=== PATIENT | male | born 1965 | race Two or more races ===

== ENCOUNTER 2018-05-10 23:43 | Inpatient (IN) | payer MEDICAID, OTHER ==
[~2018-05-10] VITALS: Ht 193 cm; Wt 73.0 kg
[2018-05-11 01:31] LABS: Hematocrit 39.4 % (41.0-53.0); Hemoglobin 12.9 g/dL (13.5-17.5); Mean Corpuscular Hemoglobin 28.4 pg (28.0-32.0); Mean Corpuscular Hgb Conc. 32.6 g/dL (32.0-36.0); Mean Corpuscular Volume 87.2 fL (80.0-100.0); Platelet Count (auto) 427 10^3/uL (140-450); Red Blood Cells 4.52 10^6/uL (4.5-5.90); Red Cell Distribution Width 14.5 % (11.8-14.3); White Blood Cell 22.1 10^3/uL (4.4-10.8)
[2018-05-11 01:45] LABS: Albumin 1.8 g/dL (3.4-5.0); BUN/Creatinine Ratio 27.9; Calcium 7.7 mg/dL (8.5-10.1)
[2018-05-11 01:48] LABS: Bilirubin, Total 1.2 mg/dL (0.2-1.0); Total Protein 6.1 g/dL (6.4-8.2)
[2018-05-11 01:56] LABS: Basophils % (manual) 0 (0.0-2.0); Blast Cells 0; Eosinophils % (manual) 0 (0-7); Metamyelocytes % 0; Myelocytes % 0; Promyelocytes % 0; Reactive Lymphocytes 0
[2018-05-11 02:59] LABS: Band Neutrophils % (manual) 11; Lymphocytes % (manual) 4 (10.0-50.0); Monocytes % (manual) 6 (0-12)
[2018-05-11] MEDS ORDERED: IPRATROPIUM BROM 0.5 MG/2.5ML INH SOL HHN ONE (03:00)
[2018-05-11] MEDS ORDERED: ALBUTEROL SULF 2.5 MG/0.5ML(0.5%) NEB SOLN HHN ONE (03:00)
[2018-05-11] MEDS ORDERED: methylPREDNISolone SOD SUCC 125 MG/2 ML VL IV ONE (03:00)
[2018-05-11 03:20] LABS: Urine Bacteria FEW /hpf (None Seen); Urine Blood Negative /uL (Negative); Urine Mucus FEW (None Seen); Urine WBC 3 /hpf (0 - 3)
[2018-05-11 03:27] LABS: Magnesium 2.3 mg/dL (1.6-2.6)
[2018-05-11 03:38] LABS: Alcohol, Urine < 3.0 mg/dL (0-5); Amphetamine Screen, Urine NEGATIVE (NEGATIVE); Barbiturate Scree,Urine NEGATIVE (NEGATIVE); Benzodiazephine Screen, Urine NEGATIVE (NEGATIVE); Cannabinoid Screen, Urine NEGATIVE (NEGATIVE); Cocaine Screen, Urine NEGATIVE (NEGATIVE); Opiate Scree,Urine POSITIVE (NEGATIVE); Phencyclidine Screen, Urine NEGATIVE (NEGATIVE)
[2018-05-11] MEDS ORDERED: PIPERACILLIN-TAZOB 3.375GM 100 ML IV ONE (03:45)
[2018-05-11] MEDS ORDERED: HYDROmorphone HCL 2 MG TAB PO ONE (03:45)
[2018-05-11] MEDS ORDERED: HYDROmorphone HCL 2 MG/ML VL IV ONE (03:45)
[2018-05-11] MEDS ORDERED: ONDANSETRON HCL 4 MG/2 ML VIAL IV ONE ×2 (03:45)
[2018-05-11] MEDS ORDERED: LORazepam 2MG/ML-1ML VIAL IV ONE (03:45)
[2018-05-11] MEDS ORDERED: CALCIUM GLUC 4.65meq/50ml D5AE 50 ML IV ONE (06:30)
[2018-05-11] MEDS ORDERED: ONDANSETRON HCL 4 MG/2 ML VIAL IV PRN (06:30)
[2018-05-11] MEDS ORDERED: MORPHINE SULFATE 4 MG/ML SYR/VIAL IV PRN (06:30)
[2018-05-11] MEDS ORDERED: ACETAMINOPHEN 325 MG TAB PO PRN (06:30)
[2018-05-11] MEDS ORDERED: TEMAZEPAM 15 MG CAP PO PRN (06:30)
[2018-05-11] MEDS ORDERED: NITROGLYCERIN 0.4 MG SL TAB SL PRN (06:30)
[2018-05-11 08:16] VITALS: BP 107/58
[2018-05-11] MEDS: FAMOTIDINE 20 MG TAB PO SCH ×2 (09:42→21:47)
[2018-05-11] MEDS: ALBUTEROL SULF 2.5 MG/0.5ML(0.5%) NEB SOLN NEB PRN (09:52)
[2018-05-11] MEDS ORDERED: ENOXAPARIN SOD 40 MG/0.4 ML SYRINGE SC SCH (10:00)
[2018-05-11] MEDS ORDERED: LEVOFLOXACIN 750MG 150 ML IV SCH (10:00)
[2018-05-11] MEDS ORDERED: LIDOCAINE 1% (LOCAL ANESTH.) PF 5ml SDV ONE ×2 (11:25→11:32)
[2018-05-11] MEDS ORDERED: MIDAZOLAM HCL 5 MG/ML-1ML VIAL ONE (11:42)
[2018-05-11] MEDS ORDERED: ONDANSETRON HCL 4 MG/2 ML VIAL ONE (11:58)
[2018-05-11] MEDS ORDERED: MORPHINE SULFATE 4 MG/ML SYR/VIAL ONE (11:58)
[2018-05-11] MEDS ORDERED: MIDAZOLAM HCL 5 MG/ML-1ML VIAL IV ONE (12:30)
[2018-05-11 12:39] VITALS: BP 107/58
[2018-05-11] MEDS ORDERED: VANCOMYCIN PER PHARMACY 0 MG IV SCH (12:45)
[2018-05-11] MEDS ORDERED: GASTROGRAFIN 30 ML SOL ONE (12:56)
[2018-05-11 13:21] VITALS: BP 107/69
[2018-05-11 13:21] LABS: INR 1.18 (0.9-1.15); Prothrombin Time 12.9 sec (9.27-12.13)
[2018-05-11 13:58] LABS: % Iron Saturation 12.6 % (20-55)
[2018-05-11] MEDS: MEROPENEM 1GM IVPB 100 ML IV SCH ×2 (14:48→21:47)
[2018-05-11 15:46] VITALS: BP 120/70
[2018-05-11] MEDS: MORPHINE SULFATE 4 MG/ML SYR/VIAL IV PRN ×2 (16:02→20:34)
[2018-05-11] MEDS: ONDANSETRON HCL 4 MG/2 ML VIAL IV PRN (16:02)
[2018-05-11] MEDS: VANCOMYCIN 1,250 MG in D5W 5% 250 ML IV SCH (17:32)
[2018-05-11] MEDS ORDERED: IOHEXOL 300 MG/ML 100ML BOTTLE IJ ONE (17:42)
[2018-05-11 20:38] VITALS: BP 105/63
[2018-05-12] MEDS: MORPHINE SULFATE 4 MG/ML SYR/VIAL IV PRN ×3 (01:08→05:34)
[2018-05-12 01:20] VITALS: BP 114/68
[2018-05-12] MEDS: VANCOMYCIN 1,250 MG in D5W 5% 250 ML IV SCH ×2 (04:52→16:34)
[2018-05-12 04:59] LABS: Basophils # (auto) 0 uL; Basophils % (auto) 0.1 % (0.0-2.0); Eosinophils # (auto) 0 uL; Eosinophils % (auto) 0.1 % (0.0-7.0); Hematocrit 37.2 % (41.0-53.0); Hemoglobin 12.5 g/dL (13.5-17.5); Lymphocytes # (auto) 0.9 uL; Lymphocytes % (auto) 5.2 % (10.0-50.0); Mean Corpuscular Hemoglobin 29.3 pg (28.0-32.0); Mean Corpuscular Hgb Conc. 33.6 g/dL (32.0-36.0); Mean Corpuscular Volume 87.2 fL (80.0-100.0); Monocytes # (auto) 1.8 uL; Monocytes % (auto) 10.8 % (0.0-12.0); Neutrophils % (auto) 83.8 % (37.0-80.0); Platelet Count (auto) 433 10^3/uL (140-450); Red Blood Cells 4.27 10^6/uL (4.5-5.90); Red Cell Distribution Width 14.5 % (11.8-14.3); White Blood Cell 16.6 10^3/uL (4.4-10.8)
[2018-05-12 05:12] VITALS: BP 116/63
[2018-05-12 05:19] LABS: Albumin 1.5 g/dL (3.4-5.0); Calcium 7.7 mg/dL (8.5-10.1); Potassium 4.3 mmol/L (3.5-5.1)
[2018-05-12 05:23] LABS: BUN/Creatinine Ratio 41.7; Bilirubin, Total 0.9 mg/dL (0.2-1.0); Total Protein 5.3 g/dL (6.4-8.2)
[2018-05-12] MEDS: MEROPENEM 1GM IVPB 100 ML IV SCH ×3 (07:56→22:03)
[2018-05-12 08:00] VITALS: BP 115/66
[2018-05-12] MEDS: FAMOTIDINE 20 MG TAB PO SCH ×2 (09:51→22:03)
[2018-05-12] MEDS: HYDROcodone-ACET 5/325MG TAB PO PRN ×2 (09:51→19:48)
[2018-05-12] MEDS: ALBUTEROL SULF 2.5 MG/0.5ML(0.5%) NEB SOLN NEB PRN (10:21)
[2018-05-12 11:48] VITALS: BP 109/65
[2018-05-12] MEDS ORDERED: IBUP600T27 PO (13:01)
[2018-05-12 15:50] VITALS: BP 117/70
[2018-05-12 19:47] VITALS: BP 119/70
[2018-05-13] VITALS: BP 115/62
[2018-05-13 04:00] VITALS: BP 120/73
[2018-05-13] MEDS: VANCOMYCIN 1,250 MG in D5W 5% 250 ML IV SCH ×2 (04:49→17:10)
[2018-05-13] MEDS: HYDROcodone-ACET 5/325MG TAB PO PRN (04:56)
[2018-05-13 05:43] LABS: Basophils # (auto) 0 uL; Eosinophils # (auto) 0 uL; Eosinophils % (auto) 0.1 % (0.0-7.0); Lymphocytes # (auto) 0.5 uL; Neutrophils # (auto) 14.4 uL; White Blood Cell 16.4 10^3/uL (4.4-10.8)
[2018-05-13 05:45] LABS: Basophils % (auto) 0.1 % (0.0-2.0); Hematocrit 36.5 % (41.0-53.0); Hemoglobin 12.4 g/dL (13.5-17.5); Lymphocytes % (auto) 3.1 % (10.0-50.0); Mean Corpuscular Hemoglobin 29.4 pg (28.0-32.0); Mean Corpuscular Hgb Conc. 33.9 g/dL (32.0-36.0); Mean Corpuscular Volume 86.7 fL (80.0-100.0); Monocytes # (auto) 1.5 uL; Monocytes % (auto) 9.1 % (0.0-12.0); Neutrophils % (auto) 87.6 % (37.0-80.0); Nucleated Red Blood Cells % 0.1 %; Platelet Count (auto) 441 10^3/uL (140-450); Red Blood Cells 4.21 10^6/uL (4.5-5.90); Red Cell Distribution Width 14.4 % (11.8-14.3)
[2018-05-13 06:04] LABS: Albumin 1.5 g/dL (3.4-5.0); BUN/Creatinine Ratio 37.3; Calcium 7.3 mg/dL (8.5-10.1); Potassium 4.1 mmol/L (3.5-5.1)
[2018-05-13 06:07] LABS: Bilirubin, Total 0.8 mg/dL (0.2-1.0); Total Protein 5.3 g/dL (6.4-8.2)
[2018-05-13] MEDS: MEROPENEM 1GM IVPB 100 ML IV SCH ×3 (07:00→21:46)
[2018-05-13 07:50] VITALS: BP 114/72
[2018-05-13] MEDS: ONDANSETRON HCL 4 MG/2 ML VIAL IV PRN ×2 (09:39→21:47)
[2018-05-13] MEDS: MORPHINE SULFATE 4 MG/ML SYR/VIAL IV PRN ×2 (09:40→21:46)
[2018-05-13] MEDS: FAMOTIDINE 20 MG TAB PO SCH ×2 (09:49→21:46)
[2018-05-13] MEDS ORDERED: LACT10SO3 PO (11:34)
[2018-05-13] MEDS ORDERED: GABA300C10 PO (11:34)
[2018-05-13 11:37] VITALS: BP 113/66
[2018-05-13 13:37] LABS: Hepatitis B Surface Antibody Negative; Hepatitis B Surface Antigen Negative (Negative)
[2018-05-13 13:38] LABS: Hepatitis A Total Antibody Positive; Hepatitis B Core Total AB Negative; Hepatitis C Antibody Negative (Negative)
[2018-05-13 15:56] VITALS: BP 113/66
[2018-05-13 19:55] VITALS: BP 116/68
[2018-05-14] VITALS (7 sets, daily range): BP systolic 103–115; BP diastolic 60–66
[2018-05-14] MEDS: VANCOMYCIN 1,250 MG in D5W 5% 250 ML IV SCH ×3 (01:36→16:44)
[2018-05-14] MEDS: HYDROcodone-ACET 5/325MG TAB PO PRN (01:40)
[2018-05-14] MEDS: MEROPENEM 1GM IVPB 100 ML IV SCH ×3 (05:47→21:45)
[2018-05-14 06:15] LABS: Basophils # (auto) 0 uL; Basophils % (auto) 0.1 % (0.0-2.0); Eosinophils # (auto) 0 uL; Eosinophils % (auto) 0.2 % (0.0-7.0); Hematocrit 35.2 % (41.0-53.0); Hemoglobin 11.6 g/dL (13.5-17.5); Lymphocytes # (auto) 0.7 uL; Lymphocytes % (auto) 4.9 % (10.0-50.0); Mean Corpuscular Hemoglobin 28.5 pg (28.0-32.0); Mean Corpuscular Volume 86.5 fL (80.0-100.0); Monocytes # (auto) 1.8 uL; Monocytes % (auto) 13.2 % (0.0-12.0); Neutrophils # (auto) 11.5 uL; Neutrophils % (auto) 81.6 % (37.0-80.0); Platelet Count (auto) 399 10^3/uL (140-450); Red Blood Cells 4.07 10^6/uL (4.5-5.90)
[2018-05-14 06:38] LABS: Albumin 1.5 g/dL (3.4-5.0); BUN/Creatinine Ratio 30.9; Bilirubin, Total 0.6 mg/dL (0.2-1.0); Calcium 7.5 mg/dL (8.5-10.1)
[2018-05-14] MEDS ORDERED: IOHEXOL 300 MG/ML 100ML BOTTLE IJ ONE (09:23)
[2018-05-14] MEDS: FAMOTIDINE 20 MG TAB PO SCH ×2 (10:21→21:45)
[2018-05-14] MEDS: MORPHINE SULFATE 4 MG/ML SYR/VIAL IV PRN ×2 (11:10→16:22)
[2018-05-14] MEDS: ONDANSETRON HCL 4 MG/2 ML VIAL IV PRN ×2 (11:10→16:22)
[2018-05-15] VITALS: BP 108/48
[2018-05-15] MEDS: VANCOMYCIN 1,250 MG in D5W 5% 250 ML IV SCH ×2 (00:40→09:03)
[2018-05-15] MEDS: MEROPENEM 1GM IVPB 100 ML IV SCH ×2 (05:45→14:05)
[2018-05-15 06:11] LABS: Basophils # (auto) 0 uL; Basophils % (auto) 0.3 % (0.0-2.0); Eosinophils # (auto) 0.1 uL; Hematocrit 37.1 % (41.0-53.0); Hemoglobin 12.5 g/dL (13.5-17.5); Lymphocytes # (auto) 0.7 uL; Lymphocytes % (auto) 5.2 % (10.0-50.0); Mean Corpuscular Hemoglobin 29.1 pg (28.0-32.0); Mean Corpuscular Hgb Conc. 33.7 g/dL (32.0-36.0); Mean Corpuscular Volume 86.5 fL (80.0-100.0); Monocytes # (auto) 1.6 uL; Monocytes % (auto) 11.2 % (0.0-12.0); Neutrophils # (auto) 11.9 uL; Neutrophils % (auto) 82.3 % (37.0-80.0); Platelet Count (auto) 436 10^3/uL (140-450); Red Blood Cells 4.29 10^6/uL (4.5-5.90); White Blood Cell 14.4 10^3/uL (4.4-10.8)
[2018-05-15 06:27] LABS: Albumin 1.7 g/dL (3.4-5.0); Calcium 7.6 mg/dL (8.5-10.1)
[2018-05-15 06:29] LABS: BUN/Creatinine Ratio 30.2
[2018-05-15 06:31] LABS: Bilirubin, Total 0.6 mg/dL (0.2-1.0); Total Protein 5.4 g/dL (6.4-8.2)
[2018-05-15 07:30] VITALS: BP 107/57
[2018-05-15] MEDS: FAMOTIDINE 20 MG TAB PO SCH ×2 (09:02→21:33)
[2018-05-15] MEDS: HYDROcodone-ACET 5/325MG TAB PO PRN ×2 (09:18→21:33)
[2018-05-15 12:30] VITALS: BP 130/60
[2018-05-15 15:47] VITALS: BP 114/63
[2018-05-15] MEDS: PENICILLIN G POTASSIUM 3,000,000 UNITS in D5W 5% 50 ML IV SCH ×2 (17:32→21:33)
[2018-05-15 20:00] VITALS: BP 122/67
[2018-05-16] VITALS: BP 115/68
[2018-05-16] MEDS: PENICILLIN G POTASSIUM 3,000,000 UNITS in D5W 5% 50 ML IV SCH ×6 (01:42→21:50)
[2018-05-16 04:00] VITALS: BP 134/65
[2018-05-16] MEDS: HYDROcodone-ACET 5/325MG TAB PO PRN ×4 (04:03→21:09)
[2018-05-16 04:49] LABS: Basophils # (auto) 0.1 uL; Basophils % (auto) 0.4 % (0.0-2.0); Eosinophils # (auto) 0.2 uL; Hematocrit 35.8 % (41.0-53.0); Hemoglobin 12.2 g/dL (13.5-17.5); Lymphocytes # (auto) 0.8 uL; Lymphocytes % (auto) 6.8 % (10.0-50.0); Mean Corpuscular Hemoglobin 29.3 pg (28.0-32.0); Mean Corpuscular Volume 86.3 fL (80.0-100.0); Monocytes # (auto) 1.6 uL; Monocytes % (auto) 13.4 % (0.0-12.0); Neutrophils # (auto) 9.5 uL; Neutrophils % (auto) 77.4 % (37.0-80.0); Platelet Count (auto) 412 10^3/uL (140-450); Red Blood Cells 4.14 10^6/uL (4.5-5.90); Red Cell Distribution Width 13.9 % (11.8-14.3); White Blood Cell 12.2 10^3/uL (4.4-10.8)
[2018-05-16 05:07] LABS: Albumin 1.7 g/dL (3.4-5.0); BUN/Creatinine Ratio 33.3; Calcium 7.7 mg/dL (8.5-10.1); Potassium 4.1 mmol/L (3.5-5.1)
[2018-05-16 05:10] LABS: Bilirubin, Total 0.7 mg/dL (0.2-1.0); Total Protein 5.3 g/dL (6.4-8.2)
[2018-05-16 08:30] VITALS: BP 125/69
[2018-05-16] MEDS: FAMOTIDINE 20 MG TAB PO SCH ×2 (09:18→21:50)
[2018-05-16 11:50] VITALS: BP 111/57
[2018-05-16 15:51] VITALS: BP 119/69
[2018-05-16] MEDS ORDERED: MORPHINE SULFATE 4 MG/ML SYR/VIAL IV PRN (16:30)
[2018-05-16] MEDS: Pro-Stat SF 30ml Vanilla PO SCH (18:07)
[2018-05-16] MEDS: Ensure Enlive Chocolate 8oz Bottle PO SCH (18:07)
[2018-05-16 22:00] VITALS: BP 124/70
[2018-05-17] MEDS: PENICILLIN G POTASSIUM 3,000,000 UNITS in D5W 5% 50 ML IV SCH ×6 (02:10→22:15)
[2018-05-17] MEDS: HYDROcodone-ACET 5/325MG TAB PO PRN ×3 (02:11→15:45)
[2018-05-17 05:00] VITALS: BP 121/69
[2018-05-17 05:12] LABS: Basophils # (auto) 0.1 uL; Basophils % (auto) 0.5 % (0.0-2.0); Eosinophils # (auto) 0.3 uL; Eosinophils % (auto) 2.5 % (0.0-7.0); Hematocrit 36.6 % (41.0-53.0); Hemoglobin 12.3 g/dL (13.5-17.5); Lymphocytes # (auto) 0.9 uL; Lymphocytes % (auto) 7.9 % (10.0-50.0); Mean Corpuscular Hgb Conc. 33.8 g/dL (32.0-36.0); Mean Corpuscular Volume 85.9 fL (80.0-100.0); Monocytes # (auto) 1.3 uL; Monocytes % (auto) 11.4 % (0.0-12.0); Neutrophils # (auto) 8.7 uL; Neutrophils % (auto) 77.7 % (37.0-80.0); Nucleated Red Blood Cells % 0.1 %; Platelet Count (auto) 431 10^3/uL (140-450); Red Blood Cells 4.26 10^6/uL (4.5-5.90); Red Cell Distribution Width 14.1 % (11.8-14.3); White Blood Cell 11.2 10^3/uL (4.4-10.8)
[2018-05-17 05:31] LABS: Albumin 1.8 g/dL (3.4-5.0); Calcium 7.8 mg/dL (8.5-10.1); Potassium 3.9 mmol/L (3.5-5.1)
[2018-05-17 05:36] LABS: BUN/Creatinine Ratio 25.5; Bilirubin, Total 0.6 mg/dL (0.2-1.0); Total Protein 5.7 g/dL (6.4-8.2)
[2018-05-17 07:52] VITALS: BP 121/69
[2018-05-17 08:18] VITALS: BP_SYST 115; BP_SYST 122; BP_DIAS 72; BP_DIAS 80
[2018-05-17] MEDS: Pro-Stat SF 30ml Vanilla PO SCH ×2 (08:26→17:36)
[2018-05-17] MEDS: Ensure Enlive Chocolate 8oz Bottle PO SCH ×2 (08:26→17:36)
[2018-05-17] MEDS: FAMOTIDINE 20 MG TAB PO SCH ×2 (10:26→22:16)
[2018-05-17 12:07] VITALS: BP 112/73
[2018-05-17] MEDS: SODIUM FERR GLUC 62.5MG/5ML 125 MG in SODIUM CHL 0.9% 100 ML IV SCH (13:25)
[2018-05-17 16:29] VITALS: BP 113/70
[2018-05-17] MEDS: MORPHINE SULFATE 4 MG/ML SYR/VIAL IV PRN (20:20)
[2018-05-17 21:47] VITALS: BP 120/65
[2018-05-18] MEDS: HYDROcodone-ACET 5/325MG TAB PO PRN ×4 (00:18→19:45)
[2018-05-18] MEDS: PENICILLIN G POTASSIUM 3,000,000 UNITS in D5W 5% 50 ML IV SCH ×6 (02:06→21:58)
[2018-05-18 05:04] VITALS: BP 116/68
[2018-05-18 05:36] LABS: Basophils # (auto) 0.1 uL; Eosinophils # (auto) 0.3 uL; Eosinophils % (auto) 3.3 % (0.0-7.0); Hematocrit 33.3 % (41.0-53.0); Hemoglobin 11.4 g/dL (13.5-17.5); Lymphocytes # (auto) 0.9 uL; Lymphocytes % (auto) 8.5 % (10.0-50.0); Mean Corpuscular Hemoglobin 29.6 pg (28.0-32.0); Mean Corpuscular Hgb Conc. 34.4 g/dL (32.0-36.0); Mean Corpuscular Volume 85.9 fL (80.0-100.0); Monocytes # (auto) 1.4 uL; Monocytes % (auto) 13.4 % (0.0-12.0); Neutrophils # (auto) 7.4 uL; Neutrophils % (auto) 73.8 % (37.0-80.0); Platelet Count (auto) 400 10^3/uL (140-450); Red Blood Cells 3.87 10^6/uL (4.5-5.90); White Blood Cell 10.1 10^3/uL (4.4-10.8)
[2018-05-18 05:55] LABS: Albumin 1.8 g/dL (3.4-5.0); Calcium 7.7 mg/dL (8.5-10.1); Potassium 3.9 mmol/L (3.5-5.1)
[2018-05-18 05:59] LABS: Bilirubin, Total 0.6 mg/dL (0.2-1.0); Total Protein 5.4 g/dL (6.4-8.2)
[2018-05-18 08:03] VITALS: BP 118/70
[2018-05-18] MEDS: FAMOTIDINE 20 MG TAB PO SCH ×2 (10:15→21:58)
[2018-05-18] MEDS: Ensure Enlive Chocolate 8oz Bottle PO SCH ×2 (10:20→18:05)
[2018-05-18] MEDS: Pro-Stat SF 30ml Vanilla PO SCH ×2 (10:21→18:06)
[2018-05-18 12:17] VITALS: BP 113/60
[2018-05-18] MEDS: SODIUM FERR GLUC 62.5MG/5ML 125 MG in SODIUM CHL 0.9% 100 ML IV SCH (12:27)
[2018-05-18 16:53] VITALS: BP 123/71
[2018-05-18] MEDS ORDERED: TEMAZEPAM 15 MG CAP PO PRN (18:00)
[2018-05-18] MEDS: FERROUS SULFATE 325 MG TAB PO SCH (18:05)
[2018-05-18 22:00] VITALS: BP 119/68
[2018-05-19] MEDS: MORPHINE SULFATE 4 MG/ML SYR/VIAL IV PRN ×3 (01:25→20:01)
[2018-05-19] MEDS: PENICILLIN G POTASSIUM 3,000,000 UNITS in D5W 5% 50 ML IV SCH ×6 (01:51→21:52)
[2018-05-19] MEDS: HYDROcodone-ACET 5/325MG TAB PO PRN ×3 (04:01→23:33)
[2018-05-19 05:00] VITALS: BP 121/75
[2018-05-19] MEDS: FERROUS SULFATE 325 MG TAB PO SCH ×2 (08:05→17:52)
[2018-05-19] MEDS: Ensure Enlive Chocolate 8oz Bottle PO SCH ×2 (08:06→19:31)
[2018-05-19] MEDS: Pro-Stat SF 30ml Vanilla PO SCH ×2 (08:07→19:31)
[2018-05-19 09:00] VITALS: BP 118/64
[2018-05-19] MEDS: FAMOTIDINE 20 MG TAB PO SCH ×2 (10:04→21:52)
[2018-05-19 12:48] VITALS: BP 115/64
[2018-05-19 17:00] VITALS: BP 123/71
[2018-05-19 22:24] VITALS: BP 119/64
[2018-05-20] MEDS: PENICILLIN G POTASSIUM 3,000,000 UNITS in D5W 5% 50 ML IV SCH ×6 (02:04→21:24)
[2018-05-20] MEDS: HYDROcodone-ACET 5/325MG TAB PO PRN ×2 (05:34→22:45)
[2018-05-20 05:38] VITALS: BP 127/74
[2018-05-20] MEDS: FERROUS SULFATE 325 MG TAB PO SCH ×2 (07:59→18:11)
[2018-05-20 08:00] VITALS: BP 127/74
[2018-05-20] MEDS: Pro-Stat SF 30ml Vanilla PO SCH ×2 (08:03→18:12)
[2018-05-20] MEDS: Ensure Enlive Chocolate 8oz Bottle PO SCH ×2 (08:03→18:12)
[2018-05-20 08:48] VITALS: BP 118/66
[2018-05-20] MEDS: FAMOTIDINE 20 MG TAB PO SCH ×2 (10:09→21:24)
[2018-05-20 13:00] VITALS: BP 117/76
[2018-05-20] MEDS ORDERED: CLINDAMYCIN 900MG IV 50 ML IV SCH (14:00)
[2018-05-20] MEDS: CLINDAMYCIN 900MG IV 50 ML IV SCH ×2 (15:11→23:28)
[2018-05-20 17:03] VITALS: BP 119/76
[2018-05-20] MEDS: MORPHINE SULFATE 4 MG/ML SYR/VIAL IV PRN (20:19)
[2018-05-20 21:48] VITALS: BP 119/70
[2018-05-21] VITALS (26 sets, daily range): BP systolic 96–119; BP diastolic 58–81
[2018-05-21] MEDS: PENICILLIN G POTASSIUM 3,000,000 UNITS in D5W 5% 50 ML IV SCH ×6 (01:29→22:23)
[2018-05-21] MEDS: HYDROcodone-ACET 5/325MG TAB PO PRN ×2 (05:28→12:53)
[2018-05-21 05:34] LABS: Basophils # (auto) 0.1 uL; Eosinophils # (auto) 0.2 uL; Eosinophils % (auto) 2.1 % (0.0-7.0); Hematocrit 34.9 % (41.0-53.0); Hemoglobin 11.8 g/dL (13.5-17.5); Lymphocytes # (auto) 1.3 uL; Lymphocytes % (auto) 11.1 % (10.0-50.0); Mean Corpuscular Hemoglobin 28.9 pg (28.0-32.0); Mean Corpuscular Hgb Conc. 33.9 g/dL (32.0-36.0); Mean Corpuscular Volume 85.4 fL (80.0-100.0); Monocytes # (auto) 1.4 uL; Monocytes % (auto) 12.2 % (0.0-12.0); Neutrophils # (auto) 8.4 uL; Neutrophils % (auto) 73.6 % (37.0-80.0); Platelet Count (auto) 405 10^3/uL (140-450); Red Blood Cells 4.09 10^6/uL (4.5-5.90); White Blood Cell 11.4 10^3/uL (4.4-10.8)
[2018-05-21 05:52] LABS: INR 1.05 (0.9-1.15); Partial Thromboplastin Time 30.7 sec (23.78-33.04); Prothrombin Time 11.2 sec (9.27-12.13)
[2018-05-21 06:15] LABS: Potassium 4.2 mmol/L (3.5-5.1)
[2018-05-21 06:21] LABS: Urine WBC None Seen /hpf (0 - 3)
[2018-05-21 06:25] LABS: BUN/Creatinine Ratio 35.6; Bilirubin, Total 0.3 mg/dL (0.2-1.0); Calcium 8.1 mg/dL (8.5-10.1); Total Protein 6.1 g/dL (6.4-8.2)
[2018-05-21 06:57] LABS: Urine Bacteria NONE SEEN /hpf (None Seen); Urine Blood Negative /uL (Negative); Urine Specific Gravity 1.015 (1.001-1.035)
[2018-05-21] MEDS: CLINDAMYCIN 900MG IV 50 ML IV SCH ×3 (07:00→23:04)
[2018-05-21] MEDS: Ensure Enlive Chocolate 8oz Bottle PO SCH ×2 (08:00→18:00)
[2018-05-21] MEDS: FERROUS SULFATE 325 MG TAB PO SCH ×2 (08:00→18:00)
[2018-05-21] MEDS: Pro-Stat SF 30ml Vanilla PO SCH ×2 (08:00→18:00)
[2018-05-21] MEDS: HYDROmorphone HCL 2 MG/ML VL IV PRN ×5 (08:11→19:48)
[2018-05-21] MEDS: FAMOTIDINE 20 MG TAB PO SCH ×2 (10:00→22:00)
[2018-05-21] MEDS ORDERED: fentaNYL CITRATE 100 MCG/2 ML VL ONE (14:51)
[2018-05-21] MEDS ORDERED: MIDAZOLAM HCL 1MG/1ML-2 ML VIAL ONE (14:51)
[2018-05-21] MEDS ORDERED: SUCCINYLCHOLINE CHLORIDE 20 MG/ML 10ML VIAL IV ONE (14:51)
[2018-05-21] MEDS ORDERED: MEPERIDINE HCL (50 MG/ML) 1 ML VIAL ONE ×2 (14:51→16:34)
[2018-05-21] MEDS ORDERED: PHENYLEPHRINE HCL 10 MG/ML VL IV ONE (14:55)
[2018-05-21] MEDS ORDERED: ETOMIDATE (2MG/ML) 20ML VIAL IV ONE (14:55)
[2018-05-21] MEDS ORDERED: DEXAMETHASONE SOD PHOS 10MG/1ML VIAL INJ ONE (15:03)
[2018-05-21] MEDS ORDERED: PROPOFOL 10 MG/ML 20 ML IV ONE (15:03)
[2018-05-21] MEDS ORDERED: KETOROLAC TROMETH 30 MG/ML 1ML VIAL ONE (16:10)
[2018-05-21] MEDS ORDERED: HYDROmorphone HCL 2 MG/ML VL IV PRN (17:00)
[2018-05-21] MEDS ORDERED: ONDANSETRON HCL 4 MG/2 ML VIAL IV ONE (17:00)
[2018-05-21] MEDS ORDERED: KETOROLAC TROMETH 30 MG/ML 1ML VIAL IV ONE (17:00)
[2018-05-21] MEDS ORDERED: ePHEDrine SULFATE 50 MG/ML AMP IV PRN (17:00)
[2018-05-21] MEDS ORDERED: MORPHINE SULFATE 4 MG/ML SYR/VIAL IV PRN (17:00)
[2018-05-21] MEDS ORDERED: LABETALOL HCL 5 MG/ML 4ML SYRINGE IV PRN (17:00)
[2018-05-21] MEDS ORDERED: MORPHINE SULFATE 4 MG/ML SYR/VIAL IV ONE (18:00)
[2018-05-21] MEDS: KETOROLAC TROMETH 30 MG/ML 1ML VIAL IV PRN (22:18)
[2018-05-21] MEDS: D5W/SOD CHL 0.45%/KCL 20MEQ 1,000 ML IV SCH (22:22)
[2018-05-22] VITALS (71 sets, daily range): BP systolic 93–127; BP diastolic 51–79
[2018-05-22] MEDS: HYDROmorphone HCL 2 MG/ML VL IV PRN ×3 (01:22→19:53)
[2018-05-22] MEDS: PENICILLIN G POTASSIUM 3,000,000 UNITS in D5W 5% 50 ML IV SCH ×6 (02:04→21:56)
[2018-05-22] MEDS: CLINDAMYCIN 900MG IV 50 ML IV SCH ×2 (07:00→14:52)
[2018-05-22] MEDS: D5W/SOD CHL 0.45%/KCL 20MEQ 1,000 ML IV SCH ×2 (08:53→17:45)
[2018-05-22] MEDS: KETOROLAC TROMETH 30 MG/ML 1ML VIAL IV PRN (09:22)
[2018-05-22] MEDS: FAMOTIDINE 20 MG TAB PO SCH ×2 (09:38→21:56)
[2018-05-22] MEDS: FERROUS SULFATE 325 MG TAB PO SCH ×2 (09:38→18:15)
[2018-05-22] MEDS: Ensure Enlive Chocolate 8oz Bottle PO SCH ×2 (09:43→18:15)
[2018-05-22] MEDS: Pro-Stat SF 30ml Vanilla PO SCH ×2 (09:43→18:15)
[2018-05-22] MEDS: HYDROcodone-ACET 5/325MG TAB PO PRN (22:00)
[2018-05-23] MEDS: PENICILLIN G POTASSIUM 3,000,000 UNITS in D5W 5% 50 ML IV SCH ×6 (01:55→22:07)
[2018-05-23] MEDS: HYDROcodone-ACET 5/325MG TAB PO PRN (02:06)
[2018-05-23] MEDS: D5W/SOD CHL 0.45%/KCL 20MEQ 1,000 ML IV SCH ×3 (03:45→23:45)
[2018-05-23 05:00] VITALS: BP 100/62
[2018-05-23] MEDS: HYDROmorphone HCL 2 MG/ML VL IV PRN ×6 (05:23→22:07)
[2018-05-23] MEDS: FERROUS SULFATE 325 MG TAB PO SCH ×2 (08:54→18:25)
[2018-05-23] MEDS: Pro-Stat SF 30ml Vanilla PO SCH ×2 (08:55→18:26)
[2018-05-23] MEDS: Ensure Enlive Chocolate 8oz Bottle PO SCH ×2 (08:55→18:26)
[2018-05-23 09:00] VITALS: BP 103/58
[2018-05-23] MEDS: FAMOTIDINE 20 MG TAB PO SCH ×2 (10:31→22:07)
[2018-05-23 13:00] VITALS: BP 112/67
[2018-05-23 17:00] VITALS: BP 115/69
[2018-05-23 20:01] VITALS: BP 115/69
[2018-05-23 22:10] VITALS: BP 110/59
[2018-05-24] MEDS: HYDROcodone-ACET 5/325MG TAB PO PRN ×3 (00:52→18:30)
[2018-05-24] MEDS: PENICILLIN G POTASSIUM 3,000,000 UNITS in D5W 5% 50 ML IV SCH ×6 (02:30→21:55)
[2018-05-24 05:00] VITALS: BP 112/73
[2018-05-24 06:21] LABS: Basophils # (auto) 0.1 uL; Basophils % (auto) 0.6 % (0.0-2.0); Eosinophils # (auto) 0.1 uL; Mean Corpuscular Volume 86.5 fL (80.0-100.0); Neutrophils % (auto) 78.3 % (37.0-80.0)
[2018-05-24 06:23] LABS: Eosinophils % (auto) 1.1 % (0.0-7.0); Hematocrit 21.4 % (41.0-53.0); Hemoglobin 7.3 g/dL (13.5-17.5); Lymphocytes % (auto) 7.8 % (10.0-50.0); Mean Corpuscular Hemoglobin 29.6 pg (28.0-32.0); Mean Corpuscular Hgb Conc. 34.3 g/dL (32.0-36.0); Monocytes # (auto) 1.6 uL; Monocytes % (auto) 12.2 % (0.0-12.0); Neutrophils # (auto) 10.2 uL; Platelet Count (auto) 358 10^3/uL (140-450); Red Blood Cells 2.47 10^6/uL (4.5-5.90); Red Cell Distribution Width 14.4 % (11.8-14.3); White Blood Cell 13.1 10^3/uL (4.4-10.8)
[2018-05-24 07:51] LABS: Hematocrit 21.8 % (41.0-53.0); Hemoglobin 7.4 g/dL (13.5-17.5)
[2018-05-24] MEDS: Pro-Stat SF 30ml Vanilla PO SCH ×2 (08:55→18:12)
[2018-05-24] MEDS: HYDROmorphone HCL 2 MG/ML VL IV PRN ×4 (08:55→20:33)
[2018-05-24] MEDS: Ensure Enlive Chocolate 8oz Bottle PO SCH ×2 (08:55→18:11)
[2018-05-24] MEDS: FERROUS SULFATE 325 MG TAB PO SCH ×2 (08:56→18:11)
[2018-05-24] MEDS: FAMOTIDINE 20 MG TAB PO SCH ×2 (08:56→21:55)
[2018-05-24 09:00] VITALS: BP 121/68
[2018-05-24] MEDS: D5W/SOD CHL 0.45%/KCL 20MEQ 1,000 ML IV SCH ×2 (11:36→20:33)
[2018-05-24 17:11] VITALS: BP 123/71
[2018-05-24 22:00] VITALS: BP 115/64
[2018-05-25] MEDS: HYDROmorphone HCL 2 MG/ML VL IV PRN ×6 (00:36→22:33)
[2018-05-25] MEDS: PENICILLIN G POTASSIUM 3,000,000 UNITS in D5W 5% 50 ML IV SCH ×6 (02:21→22:24)
[2018-05-25 05:00] VITALS: BP 110/77
[2018-05-25] MEDS: D5W/SOD CHL 0.45%/KCL 20MEQ 1,000 ML IV SCH ×2 (05:33→15:45)
[2018-05-25 05:43] LABS: Basophils # (auto) 0.1 uL; Eosinophils # (auto) 0.2 uL; Eosinophils % (auto) 1.3 % (0.0-7.0); Hemoglobin 7.6 g/dL (13.5-17.5); Mean Corpuscular Hemoglobin 29.6 pg (28.0-32.0); Monocytes # (auto) 1.5 uL
[2018-05-25 05:45] LABS: Basophils % (auto) 0.6 % (0.0-2.0); Hematocrit 22.2 % (41.0-53.0); Lymphocytes # (auto) 1.1 uL; Lymphocytes % (auto) 8.5 % (10.0-50.0); Mean Corpuscular Hgb Conc. 34.3 g/dL (32.0-36.0); Mean Corpuscular Volume 86.4 fL (80.0-100.0); Monocytes % (auto) 11.6 % (0.0-12.0); Neutrophils # (auto) 10.3 uL; Nucleated Red Blood Cells % 0.1 %; Platelet Count (auto) 378 10^3/uL (140-450); Red Blood Cells 2.57 10^6/uL (4.5-5.90); Red Cell Distribution Width 14.8 % (11.8-14.3); White Blood Cell 13.2 10^3/uL (4.4-10.8)
[2018-05-25] MEDS: Ensure Enlive Chocolate 8oz Bottle PO SCH ×2 (08:00→18:02)
[2018-05-25] MEDS: Pro-Stat SF 30ml Vanilla PO SCH ×2 (08:00→18:02)
[2018-05-25 09:00] VITALS: BP 114/70
[2018-05-25] MEDS: FAMOTIDINE 20 MG TAB PO SCH ×2 (10:10→22:24)
[2018-05-25] MEDS: FERROUS SULFATE 325 MG TAB PO SCH ×2 (10:10→18:01)
[2018-05-25] MEDS: HYDROcodone-ACET 5/325MG TAB PO PRN ×2 (12:31→18:02)
[2018-05-25 13:00] VITALS: BP 120/69
[2018-05-25 18:10] VITALS: BP 131/61
[2018-05-25 22:00] VITALS: BP 116/63
[2018-05-26] MEDS: D5W/SOD CHL 0.45%/KCL 20MEQ 1,000 ML IV SCH ×3 (02:20→21:45)
[2018-05-26] MEDS: PENICILLIN G POTASSIUM 3,000,000 UNITS in D5W 5% 50 ML IV SCH ×6 (02:20→21:31)
[2018-05-26] MEDS: HYDROmorphone HCL 2 MG/ML VL IV PRN ×4 (02:28→21:32)
[2018-05-26 05:00] VITALS: BP 114/69
[2018-05-26 07:29] LABS: Basophils # (auto) 0.1 uL; Eosinophils # (auto) 0.2 uL; Hemoglobin 7.7 g/dL (13.5-17.5); Monocytes # (auto) 1.2 uL; Monocytes % (auto) 9.9 % (0.0-12.0)
[2018-05-26 07:32] LABS: Basophils % (auto) 0.9 % (0.0-2.0); Eosinophils % (auto) 1.4 % (0.0-7.0); Hematocrit 22.3 % (41.0-53.0); Lymphocytes # (auto) 1.2 uL; Mean Corpuscular Hemoglobin 29.9 pg (28.0-32.0); Mean Corpuscular Hgb Conc. 34.5 g/dL (32.0-36.0); Mean Corpuscular Volume 86.8 fL (80.0-100.0); Neutrophils # (auto) 9.5 uL; Neutrophils % (auto) 77.8 % (37.0-80.0); Platelet Count (auto) 398 10^3/uL (140-450); Red Blood Cells 2.57 10^6/uL (4.5-5.90); Red Cell Distribution Width 15.1 % (11.8-14.3); White Blood Cell 12.2 10^3/uL (4.4-10.8)
[2018-05-26] MEDS: Pro-Stat SF 30ml Vanilla PO SCH ×2 (08:00→17:26)
[2018-05-26] MEDS: Ensure Enlive Chocolate 8oz Bottle PO SCH ×2 (08:00→17:26)
[2018-05-26] MEDS: FERROUS SULFATE 325 MG TAB PO SCH ×2 (08:34→17:34)
[2018-05-26] MEDS: HYDROcodone-ACET 5/325MG TAB PO PRN ×2 (08:35→15:58)
[2018-05-26 08:49] VITALS: BP 112/68
[2018-05-26] MEDS: FAMOTIDINE 20 MG TAB PO SCH ×2 (10:11→21:32)
[2018-05-26 12:34] VITALS: BP 119/69
[2018-05-26 16:31] VITALS: BP 112/68
[2018-05-26 19:57] VITALS: BP 112/68
[2018-05-26 22:00] VITALS: BP 120/82
[2018-05-27] MEDS: HYDROmorphone HCL 2 MG/ML VL IV PRN ×7 (00:37→20:41)
[2018-05-27] MEDS: PENICILLIN G POTASSIUM 3,000,000 UNITS in D5W 5% 50 ML IV SCH ×6 (02:03→22:04)
[2018-05-27 05:00] VITALS: BP 107/68
[2018-05-27 06:36] LABS: Basophils # (auto) 0.1 uL; Basophils % (auto) 0.8 % (0.0-2.0); Eosinophils # (auto) 0.1 uL; White Blood Cell 13.2 10^3/uL (4.4-10.8)
[2018-05-27 06:38] LABS: Eosinophils % (auto) 1.1 % (0.0-7.0); Hematocrit 22.5 % (41.0-53.0); Hemoglobin 7.9 g/dL (13.5-17.5); Lymphocytes # (auto) 1.1 uL; Lymphocytes % (auto) 8.6 % (10.0-50.0); Mean Corpuscular Hemoglobin 30.8 pg (28.0-32.0); Mean Corpuscular Volume 87.9 fL (80.0-100.0); Monocytes # (auto) 1.3 uL; Monocytes % (auto) 9.5 % (0.0-12.0); Neutrophils # (auto) 10.6 uL; Platelet Count (auto) 440 10^3/uL (140-450); Red Blood Cells 2.57 10^6/uL (4.5-5.90); Red Cell Distribution Width 15.8 % (11.8-14.3)
[2018-05-27 06:43] LABS: Calcium 8.2 mg/dL (8.5-10.1); Potassium 4.2 mmol/L (3.5-5.1)
[2018-05-27 06:46] LABS: BUN/Creatinine Ratio 27.6; Bilirubin, Total 0.3 mg/dL (0.2-1.0)
[2018-05-27] MEDS: D5W/SOD CHL 0.45%/KCL 20MEQ 1,000 ML IV SCH ×2 (07:53→17:45)
[2018-05-27] MEDS: Pro-Stat SF 30ml Vanilla PO SCH ×2 (08:00→18:27)
[2018-05-27] MEDS: Ensure Enlive Chocolate 8oz Bottle PO SCH ×2 (08:00→18:27)
[2018-05-27 09:00] VITALS: BP 116/70
[2018-05-27] MEDS: FAMOTIDINE 20 MG TAB PO SCH ×2 (11:00→22:04)
[2018-05-27] MEDS: FERROUS SULFATE 325 MG TAB PO SCH ×2 (11:00→18:27)
[2018-05-27 13:28] VITALS: BP 111/68
[2018-05-27 16:46] VITALS: BP 109/63
[2018-05-27 20:00] VITALS: BP 119/70
[2018-05-27 22:10] VITALS: BP 119/70
[2018-05-28] MEDS: HYDROmorphone HCL 2 MG/ML VL IV PRN ×7 (00:05→21:43)
[2018-05-28] MEDS: PENICILLIN G POTASSIUM 3,000,000 UNITS in D5W 5% 50 ML IV SCH ×2 (02:00→06:07)
[2018-05-28] MEDS: D5W/SOD CHL 0.45%/KCL 20MEQ 1,000 ML IV SCH ×2 (03:48→15:45)
[2018-05-28 05:14] VITALS: BP 131/66
[2018-05-28] MEDS: Ensure Enlive Chocolate 8oz Bottle PO SCH ×2 (07:55→17:13)
[2018-05-28] MEDS: Pro-Stat SF 30ml Vanilla PO SCH ×2 (07:56→17:13)
[2018-05-28 08:36] VITALS: BP 117/71
[2018-05-28] MEDS: D5W 5% IV SCH ×4 (10:40→21:43)
[2018-05-28] MEDS: FERROUS SULFATE 325 MG TAB PO SCH ×2 (10:40→17:46)
[2018-05-28] MEDS: PENICILLIN POTASSIUM IV SCH ×4 (10:40→21:43)
[2018-05-28] MEDS: FAMOTIDINE 20 MG TAB PO SCH ×2 (10:41→21:43)
[2018-05-28 13:00] VITALS: BP 123/74
[2018-05-28 17:00] VITALS: BP 117/70
[2018-05-28 20:00] VITALS: BP 113/74
[2018-05-28 21:52] VITALS: BP 113/74
[2018-05-29] MEDS: HYDROmorphone HCL 2 MG/ML VL IV PRN ×6 (01:27→19:51)
[2018-05-29] MEDS: D5W 5% IV SCH ×6 (01:50→22:30)
[2018-05-29] MEDS: PENICILLIN POTASSIUM IV SCH ×6 (01:50→22:30)
[2018-05-29 05:13] VITALS: BP 113/74
[2018-05-29 05:19] VITALS: BP 113/68
[2018-05-29] MEDS: Pro-Stat SF 30ml Vanilla PO SCH ×2 (08:00→17:42)
[2018-05-29] MEDS: Ensure Enlive Chocolate 8oz Bottle PO SCH ×2 (08:00→17:42)
[2018-05-29 08:19] VITALS: BP 119/79
[2018-05-29] MEDS: FERROUS SULFATE 325 MG TAB PO SCH ×2 (09:00→17:42)
[2018-05-29] MEDS: FAMOTIDINE 20 MG TAB PO SCH ×2 (11:46→22:31)
[2018-05-29 12:06] VITALS: BP 116/71
[2018-05-29 16:49] VITALS: BP 124/73
[2018-05-29 19:10] LABS: Basophils # (auto) 0.1 uL; Hemoglobin 9.2 g/dL (13.5-17.5); Lymphocytes # (auto) 1.2 uL; Mean Corpuscular Hemoglobin 29.6 pg (28.0-32.0); Red Blood Cells 3.11 10^6/uL (4.5-5.90)
[2018-05-29 19:12] LABS: Basophils % (auto) 0.8 % (0.0-2.0); Eosinophils # (auto) 0.1 uL; Lymphocytes % (auto) 8.8 % (10.0-50.0); Mean Corpuscular Hgb Conc. 32.9 g/dL (32.0-36.0); Mean Corpuscular Volume 90.1 fL (80.0-100.0); Monocytes % (auto) 7.4 % (0.0-12.0); Neutrophils # (auto) 11.2 uL; Platelet Count (auto) 552 10^3/uL (140-450); Red Cell Distribution Width 17.5 % (11.8-14.3); White Blood Cell 13.6 10^3/uL (4.4-10.8)
[2018-05-29 22:00] VITALS: BP 112/60
[2018-05-29] MEDS: D5W/SOD CHL 0.45%/KCL 20MEQ 1,000 ML IV SCH ×2 (22:39)
[2018-05-30] VITALS (7 sets, daily range): BP systolic 112–121; BP diastolic 67–74
[2018-05-30] MEDS: HYDROmorphone HCL 2 MG/ML VL IV PRN ×8 (00:04→21:43)
[2018-05-30] MEDS: PENICILLIN POTASSIUM IV SCH ×6 (02:00→21:42)
[2018-05-30] MEDS: D5W 5% IV SCH ×6 (02:00→21:42)
[2018-05-30] MEDS: D5W/SOD CHL 0.45%/KCL 20MEQ 1,000 ML IV SCH ×2 (05:45→14:49)
[2018-05-30] MEDS: Pro-Stat SF 30ml Vanilla PO SCH ×2 (09:02→18:26)
[2018-05-30] MEDS: Ensure Enlive Chocolate 8oz Bottle PO SCH ×2 (09:02→18:26)
[2018-05-30] MEDS: FERROUS SULFATE 325 MG TAB PO SCH ×2 (09:02→17:18)
[2018-05-30] MEDS: FAMOTIDINE 20 MG TAB PO SCH ×2 (09:03→21:42)
[2018-05-31] MEDS: HYDROmorphone HCL 2 MG/ML VL IV PRN ×7 (00:36→23:43)
[2018-05-31] MEDS: PENICILLIN POTASSIUM IV SCH ×6 (02:00→21:50)
[2018-05-31] MEDS: D5W 5% IV SCH ×6 (02:00→21:50)
[2018-05-31] MEDS: D5W/SOD CHL 0.45%/KCL 20MEQ 1,000 ML IV SCH ×3 (02:44→21:45)
[2018-05-31 05:00] VITALS: BP 114/71
[2018-05-31 08:00] VITALS: BP 113/69
[2018-05-31 08:15] VITALS: BP 113/69
[2018-05-31] MEDS: FERROUS SULFATE 325 MG TAB PO SCH ×2 (09:00→19:00)
[2018-05-31] MEDS: Pro-Stat SF 30ml Vanilla PO SCH ×2 (09:01→19:00)
[2018-05-31] MEDS: Ensure Enlive Chocolate 8oz Bottle PO SCH ×2 (09:01→19:00)
[2018-05-31] MEDS: FAMOTIDINE 20 MG TAB PO SCH ×2 (09:01→21:50)
[2018-05-31] MEDS ORDERED: fentaNYL CITRATE 100 MCG/2 ML VL ONE (11:05)
[2018-05-31] MEDS ORDERED: MIDAZOLAM HCL 1MG/1ML-2 ML VIAL ONE (11:05)
[2018-05-31] MEDS ORDERED: LIDOCAINE 2% (LOCAL ANESTH.) PF 5ml SDV ONE (11:57)
[2018-05-31 16:28] VITALS: BP 123/65
[2018-05-31] MEDS: HYDROcodone-ACET 5/325MG TAB PO PRN (17:28)
[2018-05-31 21:41] VITALS: BP 122/68
[2018-06-01] MEDS: D5W 5% IV SCH ×6 (02:04→22:25)
[2018-06-01] MEDS: PENICILLIN POTASSIUM IV SCH ×6 (02:04→22:25)
[2018-06-01] MEDS: HYDROmorphone HCL 2 MG/ML VL IV PRN ×6 (02:44→22:04)
[2018-06-01 05:00] VITALS: BP 106/65
[2018-06-01] MEDS: D5W/SOD CHL 0.45%/KCL 20MEQ 1,000 ML IV SCH ×2 (07:00→11:40)
[2018-06-01] MEDS: Pro-Stat SF 30ml Vanilla PO SCH ×2 (08:00→17:33)
[2018-06-01] MEDS: Ensure Enlive Chocolate 8oz Bottle PO SCH ×2 (08:00→17:33)
[2018-06-01 09:37] VITALS: BP 113/64
[2018-06-01] MEDS: FERROUS SULFATE 325 MG TAB PO SCH ×2 (09:46→19:07)
[2018-06-01] MEDS: FAMOTIDINE 20 MG TAB PO SCH ×2 (09:46→22:05)
[2018-06-01 13:53] VITALS: BP 110/69
[2018-06-01] MEDS: KETOROLAC TROMETH 30 MG/ML 1ML VIAL IV PRN (14:22)
[2018-06-01] MEDS: HEPARIN SODIUM (PORCINE) 5000 UNITS/ML 1ML VIAL SC SCH ×2 (14:24→22:28)
[2018-06-01 17:21] VITALS: BP 107/63
[2018-06-01 21:55] VITALS: BP 111/72
[2018-06-02] MEDS: HYDROmorphone HCL 2 MG/ML VL IV PRN ×8 (00:58→23:27)
[2018-06-02] MEDS: D5W/SOD CHL 0.45%/KCL 20MEQ 1,000 ML IV SCH ×5 (01:00→23:45)
[2018-06-02] MEDS: PENICILLIN POTASSIUM IV SCH ×7 (02:11→22:08)
[2018-06-02] MEDS: D5W 5% IV SCH ×7 (02:11→22:08)
[2018-06-02 05:10] VITALS: BP 110/72
[2018-06-02 06:09] LABS: Basophils # (auto) 0.1 uL; Basophils % (auto) 0.9 % (0.0-2.0); Eosinophils # (auto) 0.2 uL; Eosinophils % (auto) 2.3 % (0.0-7.0); Hematocrit 25.8 % (41.0-53.0); Hemoglobin 9.2 g/dL (13.5-17.5); Lymphocytes % (auto) 11.5 % (10.0-50.0); Mean Corpuscular Hemoglobin 31.7 pg (28.0-32.0); Mean Corpuscular Hgb Conc. 35.9 g/dL (32.0-36.0); Mean Corpuscular Volume 88.3 fL (80.0-100.0); Monocytes % (auto) 11.1 % (0.0-12.0); Neutrophils # (auto) 6.4 uL; Neutrophils % (auto) 74.2 % (37.0-80.0); Platelet Count (auto) 433 10^3/uL (140-450); Red Blood Cells 2.92 10^6/uL (4.5-5.90); Red Cell Distribution Width 16.4 % (11.8-14.3); White Blood Cell 8.7 10^3/uL (4.4-10.8)
[2018-06-02 06:25] LABS: Potassium 4.3 mmol/L (3.5-5.1)
[2018-06-02] MEDS: HEPARIN SODIUM (PORCINE) 5000 UNITS/ML 1ML VIAL SC SCH ×3 (06:28→22:11)
[2018-06-02 06:35] LABS: Calcium 8.7 mg/dL (8.5-10.1)
[2018-06-02 08:00] VITALS: BP 115/69
[2018-06-02] MEDS: FAMOTIDINE 20 MG TAB PO SCH ×2 (08:56→22:08)
[2018-06-02] MEDS: FERROUS SULFATE 325 MG TAB PO SCH ×2 (08:56→17:19)
[2018-06-02] MEDS: Ensure Enlive Chocolate 8oz Bottle PO SCH ×2 (08:57→17:18)
[2018-06-02] MEDS: Pro-Stat SF 30ml Vanilla PO SCH ×2 (08:57→17:19)
[2018-06-02 09:00] VITALS: BP 115/69
[2018-06-02 13:00] VITALS: BP 114/68
[2018-06-02 17:00] VITALS: BP 111/68
[2018-06-02 22:00] VITALS: BP 113/69
[2018-06-03 00:04] VITALS: BP 113/69
[2018-06-03] MEDS: D5W/SOD CHL 0.45%/KCL 20MEQ 1,000 ML IV SCH ×2 (02:20→09:32)
[2018-06-03] MEDS: D5W 5% IV SCH ×6 (02:33→22:29)
[2018-06-03] MEDS: PENICILLIN POTASSIUM IV SCH ×6 (02:33→22:29)
[2018-06-03] MEDS: HYDROmorphone HCL 2 MG/ML VL IV PRN ×7 (02:34→22:45)
[2018-06-03 04:43] VITALS: BP 113/68
[2018-06-03] MEDS: HEPARIN SODIUM (PORCINE) 5000 UNITS/ML 1ML VIAL SC SCH ×3 (05:58→22:30)
[2018-06-03 09:00] VITALS: BP 124/78
[2018-06-03] MEDS: FERROUS SULFATE 325 MG TAB PO SCH ×2 (09:31→18:09)
[2018-06-03] MEDS: FAMOTIDINE 20 MG TAB PO SCH ×2 (09:31→22:29)
[2018-06-03] MEDS: Ensure Enlive Chocolate 8oz Bottle PO SCH ×2 (09:32→18:09)
[2018-06-03] MEDS: Pro-Stat SF 30ml Vanilla PO SCH ×2 (09:32→18:09)
[2018-06-03 13:00] VITALS: BP 114/69
[2018-06-03 22:00] VITALS: BP 108/73
[2018-06-04] MEDS: D5W 5% IV SCH ×6 (02:06→21:32)
[2018-06-04] MEDS: PENICILLIN POTASSIUM IV SCH ×6 (02:06→21:32)
[2018-06-04] MEDS: HYDROmorphone HCL 2 MG/ML VL IV PRN ×6 (02:08→21:32)
[2018-06-04 05:00] VITALS: BP 114/69
[2018-06-04 05:44] LABS: Basophils # (auto) 0.1 uL; Basophils % (auto) 0.6 % (0.0-2.0); Eosinophils # (auto) 0.2 uL; Eosinophils % (auto) 2.2 % (0.0-7.0); Hematocrit 28.9 % (41.0-53.0); Lymphocytes # (auto) 0.9 uL; Lymphocytes % (auto) 9.1 % (10.0-50.0); Mean Corpuscular Hemoglobin 30.4 pg (28.0-32.0); Mean Corpuscular Hgb Conc. 34.5 g/dL (32.0-36.0); Mean Corpuscular Volume 88.2 fL (80.0-100.0); Monocytes # (auto) 1.1 uL; Monocytes % (auto) 11.5 % (0.0-12.0); Neutrophils # (auto) 7.4 uL; Neutrophils % (auto) 76.6 % (37.0-80.0); Platelet Count (auto) 447 10^3/uL (140-450); Red Blood Cells 3.28 10^6/uL (4.5-5.90); Red Cell Distribution Width 16.4 % (11.8-14.3); White Blood Cell 9.6 10^3/uL (4.4-10.8)
[2018-06-04] MEDS: D5W/SOD CHL 0.45%/KCL 20MEQ 1,000 ML IV SCH ×2 (05:45→17:34)
[2018-06-04] MEDS: HEPARIN SODIUM (PORCINE) 5000 UNITS/ML 1ML VIAL SC SCH (06:00)
[2018-06-04 06:06] LABS: Potassium 4.1 mmol/L (3.5-5.1)
[2018-06-04 06:14] LABS: BUN/Creatinine Ratio 31.4; Calcium 8.7 mg/dL (8.5-10.1)
[2018-06-04] MEDS: Ensure Enlive Chocolate 8oz Bottle PO SCH ×2 (08:00→18:18)
[2018-06-04] MEDS: Pro-Stat SF 30ml Vanilla PO SCH ×2 (08:00→18:18)
[2018-06-04 08:14] VITALS: BP 115/74
[2018-06-04] MEDS: FERROUS SULFATE 325 MG TAB PO SCH ×2 (08:42→18:17)
[2018-06-04] MEDS: FAMOTIDINE 20 MG TAB PO SCH ×2 (10:00→21:32)
[2018-06-04] MEDS ORDERED: LIDOCAINE 2% (LOCAL ANESTH.) PF 5ml SDV ONE ×2 (10:03→13:43)
[2018-06-04] MEDS ORDERED: EPINEPHrine HCL 1 MG/1 ML AMP ONE (10:03)
[2018-06-04] MEDS ORDERED: SODIUM CHLORIDE LOCK 30 ML ONE (10:04)
[2018-06-04] MEDS ORDERED: LIDOCAINE HCL 2 % INJ 2ML MPF NEB ONE ×2 (11:15→12:00)
[2018-06-04] MEDS ORDERED: MEPERIDINE HCL (25 MG/ML) 1ML VIAL IM ONE ×2 (11:15→12:00)
[2018-06-04 12:28] VITALS: BP 117/64
[2018-06-04] MEDS ORDERED: LIDOCAINE 2% JELLY 11ml (GLYDO) ONE (13:42)
[2018-06-04] MEDS ORDERED: LIDOCAINE VISCOUS 2% 15ML UD ONE (13:56)
[2018-06-04] MEDS: MIDAZOLAM HCL 5 MG/ML-1ML VIAL ONE ×4 (14:08→14:19)
[2018-06-04 16:53] VITALS: BP 125/59
[2018-06-04] MEDS ORDERED: HEPARIN SODIUM (PORCINE) 5000 UNITS/ML 1ML VIAL SC ONE (17:45)
[2018-06-04 21:50] VITALS: BP 128/74
[2018-06-05] MEDS: D5W/SOD CHL 0.45%/KCL 20MEQ 1,000 ML IV SCH ×4 (00:15→21:03)
[2018-06-05] MEDS: HYDROmorphone HCL 2 MG/ML VL IV PRN ×7 (00:35→23:27)
[2018-06-05] MEDS: PENICILLIN POTASSIUM IV SCH ×6 (02:06→21:42)
[2018-06-05] MEDS: D5W 5% IV SCH ×6 (02:06→21:42)
[2018-06-05 05:00] VITALS: BP 118/68
[2018-06-05 05:51] LABS: INR 1.04 (0.9-1.15); Prothrombin Time 11.1 sec (9.27-12.13)
[2018-06-05] MEDS: HEPARIN SODIUM (PORCINE) 5000 UNITS/ML 1ML VIAL SC SCH ×3 (05:55→21:48)
[2018-06-05] MEDS: Pro-Stat SF 30ml Vanilla PO SCH ×2 (08:00→18:00)
[2018-06-05] MEDS: Ensure Enlive Chocolate 8oz Bottle PO SCH ×2 (08:00→18:00)
[2018-06-05 08:19] VITALS: BP 112/64
[2018-06-05] MEDS ORDERED: SODIUM CHLORIDE LOCK 20 ML ONE (11:23)
[2018-06-05] MEDS ORDERED: NALOXONE HCL 0.4 MG/ML VIAL ONE (11:23)
[2018-06-05] MEDS ORDERED: LIDOCAINE 2% (LOCAL ANESTH.) PF 5ml SDV ONE (11:23)
[2018-06-05] MEDS ORDERED: LIDOCAINE 2% JELLY 11ml (GLYDO) ONE (11:23)
[2018-06-05] MEDS ORDERED: FLUMAZENIL 0.1 MG/ML INJ 10ML MDV IV ONE (11:23)
[2018-06-05] MEDS ORDERED: EPINEPHrine HCL 1 MG/1 ML AMP ONE (11:23)
[2018-06-05] MEDS ORDERED: SUCCINYLCHOLINE CHLORIDE 20 MG/ML 10ML VIAL IV ONE (11:50)
[2018-06-05] MEDS ORDERED: fentaNYL CITRATE 100 MCG/2 ML VL ONE (11:51)
[2018-06-05] MEDS ORDERED: MIDAZOLAM HCL 1MG/1ML-2 ML VIAL ONE (11:51)
[2018-06-05] MEDS ORDERED: ROCURONIUM 10MG/ML 10ML VIAL IV ONE (12:00)
[2018-06-05] MEDS ORDERED: PROPOFOL 10 MG/ML 20 ML IV ONE (12:01)
[2018-06-05] MEDS ORDERED: HYDROmorphone HCL 2 MG/ML VL IV PRN (12:45)
[2018-06-05] MEDS ORDERED: ONDANSETRON HCL 4 MG/2 ML VIAL IV ONE (12:45)
[2018-06-05] MEDS ORDERED: hydrALAZINE HCL 20 MG/ML VL IV PRN (12:45)
[2018-06-05] MEDS ORDERED: ePHEDrine SULFATE 50 MG/ML AMP IV PRN (12:45)
[2018-06-05] MEDS: FAMOTIDINE 20 MG TAB PO SCH ×2 (15:00→21:42)
[2018-06-05] MEDS: FERROUS SULFATE 325 MG TAB PO SCH ×2 (15:00→18:00)
[2018-06-05 17:00] VITALS: BP 119/77
[2018-06-05 18:49] VITALS: BP 119/77
[2018-06-05 22:00] VITALS: BP 119/68
[2018-06-06] MEDS: D5W/SOD CHL 0.45%/KCL 20MEQ 1,000 ML IV SCH ×3 (01:29→17:45)
[2018-06-06] MEDS: D5W 5% IV SCH ×3 (02:29→10:00)
[2018-06-06] MEDS: PENICILLIN POTASSIUM IV SCH ×3 (02:29→10:00)
[2018-06-06] MEDS: HYDROmorphone HCL 2 MG/ML VL IV PRN ×7 (02:30→22:09)
[2018-06-06 05:05] VITALS: BP 113/68
[2018-06-06] MEDS: HEPARIN SODIUM (PORCINE) 5000 UNITS/ML 1ML VIAL SC SCH ×3 (05:38→21:41)
[2018-06-06] MEDS: Pro-Stat SF 30ml Vanilla PO SCH ×2 (08:00→18:27)
[2018-06-06] MEDS: Ensure Enlive Chocolate 8oz Bottle PO SCH ×2 (08:00→18:27)
[2018-06-06] MEDS: FERROUS SULFATE 325 MG TAB PO SCH ×2 (08:00→18:27)
[2018-06-06 09:43] VITALS: BP 116/70
[2018-06-06] MEDS: FAMOTIDINE 20 MG TAB PO SCH ×2 (10:00→21:40)
[2018-06-06 13:30] VITALS: BP 129/79
[2018-06-06 17:32] VITALS: BP 110/67
[2018-06-06] MEDS: CEPHALEXIN 250 MG CAP PO SCH (18:27)
[2018-06-06] MEDS ORDERED: HEPARIN SODIUM (PORCINE) 5000 UNITS/ML 1ML VIAL ONE ×2 (21:29)
[2018-06-06 22:00] VITALS: BP 125/69
[2018-06-07] MEDS: CEPHALEXIN 250 MG CAP PO SCH ×4 (00:22→17:39)
[2018-06-07] MEDS: HYDROmorphone HCL 2 MG/ML VL IV PRN ×6 (02:23→20:54)
[2018-06-07] MEDS: D5W/SOD CHL 0.45%/KCL 20MEQ 1,000 ML IV SCH ×2 (04:21→14:50)
[2018-06-07 05:06] VITALS: BP 120/70
[2018-06-07] MEDS: HEPARIN SODIUM (PORCINE) 5000 UNITS/ML 1ML VIAL SC SCH ×3 (06:16→20:56)
[2018-06-07 08:00] VITALS: BP 113/72
[2018-06-07] MEDS: Ensure Enlive Chocolate 8oz Bottle PO SCH ×2 (08:00→18:32)
[2018-06-07] MEDS: Pro-Stat SF 30ml Vanilla PO SCH ×2 (08:00→18:32)
[2018-06-07] MEDS: FERROUS SULFATE 325 MG TAB PO SCH ×2 (09:46→17:39)
[2018-06-07] MEDS: FAMOTIDINE 20 MG TAB PO SCH ×2 (09:46→20:52)
[2018-06-07 12:00] VITALS: BP 134/68
[2018-06-07 16:00] VITALS: BP 119/71
[2018-06-07 21:38] VITALS: BP 133/81
[2018-06-08] VITALS (7 sets, daily range): BP systolic 110–118; BP diastolic 68–75
[2018-06-08] MEDS: D5W/SOD CHL 0.45%/KCL 20MEQ 1,000 ML IV SCH ×3 (00:10→19:51)
[2018-06-08] MEDS: CEPHALEXIN 250 MG CAP PO SCH ×4 (00:10→17:18)
[2018-06-08] MEDS: HYDROmorphone HCL 2 MG/ML VL IV PRN ×8 (00:11→22:26)
[2018-06-08] MEDS: HEPARIN SODIUM (PORCINE) 5000 UNITS/ML 1ML VIAL SC SCH ×3 (06:07→22:20)
[2018-06-08] MEDS: FAMOTIDINE 20 MG TAB PO SCH ×2 (09:19→22:19)
[2018-06-08] MEDS: FERROUS SULFATE 325 MG TAB PO SCH ×2 (09:19→17:18)
[2018-06-08] MEDS: Pro-Stat SF 30ml Vanilla PO SCH ×2 (09:20→17:20)
[2018-06-08] MEDS: Ensure Enlive Chocolate 8oz Bottle PO SCH ×2 (09:20→17:20)
[2018-06-09] MEDS: CEPHALEXIN 250 MG CAP PO SCH ×4 (01:38→17:26)
[2018-06-09] MEDS: HYDROmorphone HCL 2 MG/ML VL IV PRN ×7 (01:39→21:29)
[2018-06-09 05:05] VITALS: BP 122/72
[2018-06-09] MEDS: D5W/SOD CHL 0.45%/KCL 20MEQ 1,000 ML IV SCH ×2 (06:43→16:19)
[2018-06-09] MEDS: HEPARIN SODIUM (PORCINE) 5000 UNITS/ML 1ML VIAL SC SCH ×3 (06:44→21:31)
[2018-06-09 08:00] VITALS: BP 114/69
[2018-06-09] MEDS: FERROUS SULFATE 325 MG TAB PO SCH ×2 (08:12→17:26)
[2018-06-09] MEDS: Ensure Enlive Chocolate 8oz Bottle PO SCH ×2 (08:12→17:28)
[2018-06-09] MEDS: Pro-Stat SF 30ml Vanilla PO SCH ×2 (08:13→17:28)
[2018-06-09 09:27] VITALS: BP 114/69
[2018-06-09] MEDS: FAMOTIDINE 20 MG TAB PO SCH ×2 (09:46→21:29)
[2018-06-09 13:12] VITALS: BP 113/69
[2018-06-09 17:14] VITALS: BP 119/71
[2018-06-09 22:00] VITALS: BP 119/74
[2018-06-10] VITALS (7 sets, daily range): BP systolic 111–122; BP diastolic 68–85
[2018-06-10] MEDS: HYDROmorphone HCL 2 MG/ML VL IV PRN ×8 (00:30→22:21)
[2018-06-10] MEDS: CEPHALEXIN 250 MG CAP PO SCH ×5 (00:30→23:55)
[2018-06-10] MEDS: D5W/SOD CHL 0.45%/KCL 20MEQ 1,000 ML IV SCH ×2 (01:43→12:31)
[2018-06-10] MEDS: HEPARIN SODIUM (PORCINE) 5000 UNITS/ML 1ML VIAL SC SCH ×3 (06:38→21:38)
[2018-06-10] MEDS: FERROUS SULFATE 325 MG TAB PO SCH ×2 (09:01→18:32)
[2018-06-10] MEDS: FAMOTIDINE 20 MG TAB PO SCH (09:01)
[2018-06-10] MEDS: Ensure Enlive Chocolate 8oz Bottle PO SCH ×2 (09:01→18:31)
[2018-06-10] MEDS: Pro-Stat SF 30ml Vanilla PO SCH ×2 (09:08→18:31)
[2018-06-10] MEDS ORDERED: IOHEXOL 300 MG/ML 100ML BOTTLE IJ ONE (14:50)
[2018-06-11] MEDS: HYDROmorphone HCL 2 MG/ML VL IV PRN ×7 (01:59→21:06)
[2018-06-11] MEDS: D5W/SOD CHL 0.45%/KCL 20MEQ 1,000 ML IV SCH ×2 (02:00→18:54)
[2018-06-11 05:00] VITALS: BP 120/69
[2018-06-11] MEDS: CEPHALEXIN 250 MG CAP PO SCH ×3 (06:00→18:54)
[2018-06-11] MEDS: HEPARIN SODIUM (PORCINE) 5000 UNITS/ML 1ML VIAL SC SCH ×3 (06:07→21:07)
[2018-06-11 08:00] VITALS: BP 123/69
[2018-06-11] MEDS: Ensure Enlive Chocolate 8oz Bottle PO SCH ×2 (08:00→18:54)
[2018-06-11] MEDS: Pro-Stat SF 30ml Vanilla PO SCH ×2 (08:00→18:54)
[2018-06-11] MEDS: FERROUS SULFATE 325 MG TAB PO SCH ×2 (08:15→18:55)
[2018-06-11 09:00] VITALS: BP 123/69
[2018-06-11 11:27] LABS: Basophils # (auto) 0 uL; Basophils % (auto) 0.5 % (0.0-2.0); Eosinophils # (auto) 0.2 uL; Hematocrit 36.7 % (41.0-53.0); Lymphocytes # (auto) 0.7 uL; Lymphocytes % (auto) 8.5 % (10.0-50.0); Mean Corpuscular Hemoglobin 28.5 pg (28.0-32.0); Mean Corpuscular Hgb Conc. 32.7 g/dL (32.0-36.0); Mean Corpuscular Volume 87.2 fL (80.0-100.0); Neutrophils # (auto) 6.3 uL; Platelet Count (auto) 366 10^3/uL (140-450); Red Blood Cells 4.21 10^6/uL (4.5-5.90); Red Cell Distribution Width 15.5 % (11.8-14.3); White Blood Cell 8.2 10^3/uL (4.4-10.8)
[2018-06-11 11:40] LABS: INR 1.01 (0.9-1.15); Partial Thromboplastin Time 30.2 sec (23.78-33.04); Prothrombin Time 10.8 sec (9.27-12.13)
[2018-06-11 13:00] VITALS: BP 116/81
[2018-06-11] MEDS ORDERED: fentaNYL CITRATE 100 MCG/2 ML VL IV ONE (14:45)
[2018-06-11] MEDS ORDERED: MIDAZOLAM HCL 1MG/1ML-2 ML VIAL IV ONE (14:45)
[2018-06-11] MEDS ORDERED: LIDOCAINE 2% (LOCAL ANESTH.) PF 5ml SDV ONE (15:02)
[2018-06-11 22:00] VITALS: BP 152/72
[2018-06-12] VITALS (7 sets, daily range): BP systolic 113–126; BP diastolic 67–79
[2018-06-12] MEDS: CEPHALEXIN 250 MG CAP PO SCH ×4 (00:13→17:30)
[2018-06-12] MEDS: HYDROmorphone HCL 2 MG/ML VL IV PRN ×7 (00:13→20:51)
[2018-06-12] MEDS: D5W/SOD CHL 0.45%/KCL 20MEQ 1,000 ML IV SCH ×3 (02:57→23:53)
[2018-06-12 05:22] LABS: Basophils # (auto) 0 uL; Basophils % (auto) 0.7 % (0.0-2.0); Eosinophils # (auto) 0.1 uL; Hematocrit 34.6 % (41.0-53.0); Hemoglobin 11.8 g/dL (13.5-17.5); Lymphocytes # (auto) 0.8 uL; Mean Corpuscular Hemoglobin 29.4 pg (28.0-32.0); Mean Corpuscular Hgb Conc. 34.1 g/dL (32.0-36.0); Mean Corpuscular Volume 86.2 fL (80.0-100.0); Monocytes # (auto) 0.7 uL; Monocytes % (auto) 10.5 % (0.0-12.0); Neutrophils # (auto) 4.8 uL; Neutrophils % (auto) 74.8 % (37.0-80.0); Nucleated Red Blood Cells % 0.1 %; Platelet Count (auto) 341 10^3/uL (140-450); Red Blood Cells 4.01 10^6/uL (4.5-5.90); Red Cell Distribution Width 15.2 % (11.8-14.3); White Blood Cell 6.4 10^3/uL (4.4-10.8)
[2018-06-12 05:34] LABS: Albumin 2.8 g/dL (3.4-5.0); Calcium 8.5 mg/dL (8.5-10.1); Potassium 4.2 mmol/L (3.5-5.1)
[2018-06-12 05:39] LABS: BUN/Creatinine Ratio 30.4; Bilirubin, Total 0.4 mg/dL (0.2-1.0); Total Protein 7.3 g/dL (6.4-8.2)
[2018-06-12] MEDS: HEPARIN SODIUM (PORCINE) 5000 UNITS/ML 1ML VIAL SC SCH ×3 (06:01→22:09)
[2018-06-12] MEDS: FERROUS SULFATE 325 MG TAB PO SCH ×2 (08:50→17:30)
[2018-06-12] MEDS: Pro-Stat SF 30ml Vanilla PO SCH ×2 (08:51→18:58)
[2018-06-12] MEDS: Ensure Enlive Chocolate 8oz Bottle PO SCH ×2 (08:51→18:57)
[2018-06-12] MEDS ORDERED: CEPHALEXIN 250 MG CAP PO ONE (12:15)
[2018-06-13] MEDS: CEPHALEXIN 250 MG CAP PO SCH ×5 (00:35→23:49)
[2018-06-13] MEDS: HYDROmorphone HCL 2 MG/ML VL IV PRN ×5 (01:10→22:31)
[2018-06-13 05:06] VITALS: BP 122/73
[2018-06-13] MEDS: HEPARIN SODIUM (PORCINE) 5000 UNITS/ML 1ML VIAL SC SCH ×3 (05:38→22:32)
[2018-06-13 08:15] VITALS: BP 108/70
[2018-06-13] MEDS: FERROUS SULFATE 325 MG TAB PO SCH ×2 (08:27→18:39)
[2018-06-13] MEDS: Pro-Stat SF 30ml Vanilla PO SCH ×2 (08:30→18:41)
[2018-06-13] MEDS: Ensure Enlive Chocolate 8oz Bottle PO SCH ×2 (08:30→18:39)
[2018-06-13 09:03] VITALS: BP 108/70
[2018-06-13] MEDS ORDERED: HYDROmorphone HCL 2 MG/ML VL IV ONE (13:30)
[2018-06-13 14:01] VITALS: BP 105/69
[2018-06-13 16:19] VITALS: BP 109/70
[2018-06-13] MEDS: D5W/SOD CHL 0.45%/KCL 20MEQ 1,000 ML IV SCH ×2 (18:38→22:32)
[2018-06-13 22:00] VITALS: BP 118/77
[2018-06-14] MEDS: HYDROmorphone HCL 2 MG/ML VL IV PRN ×5 (03:02→21:08)
[2018-06-14 05:00] VITALS: BP 111/73
[2018-06-14] MEDS: CEPHALEXIN 250 MG CAP PO SCH ×3 (05:37→18:43)
[2018-06-14] MEDS: D5W/SOD CHL 0.45%/KCL 20MEQ 1,000 ML IV SCH ×2 (05:37→15:47)
[2018-06-14] MEDS: HEPARIN SODIUM (PORCINE) 5000 UNITS/ML 1ML VIAL SC SCH ×3 (05:37→21:15)
[2018-06-14 08:00] VITALS: BP 111/70
[2018-06-14] MEDS: FERROUS SULFATE 325 MG TAB PO SCH ×2 (08:15→18:42)
[2018-06-14] MEDS: Ensure Enlive Chocolate 8oz Bottle PO SCH ×2 (08:16→18:42)
[2018-06-14] MEDS: Pro-Stat SF 30ml Vanilla PO SCH ×2 (08:16→18:43)
[2018-06-14 09:00] VITALS: BP 111/70
[2018-06-14 12:53] VITALS: BP 120/75
[2018-06-14 17:00] VITALS: BP 119/70
[2018-06-14 22:00] VITALS: BP 112/69
[2018-06-15] MEDS: CEPHALEXIN 250 MG CAP PO SCH ×4 (00:26→17:38)
[2018-06-15] MEDS: HYDROmorphone HCL 2 MG/ML VL IV PRN ×5 (01:02→20:34)
[2018-06-15] MEDS: D5W/SOD CHL 0.45%/KCL 20MEQ 1,000 ML IV SCH ×3 (02:52→21:45)
[2018-06-15] MEDS: HEPARIN SODIUM (PORCINE) 5000 UNITS/ML 1ML VIAL SC SCH ×3 (05:38→22:00)
[2018-06-15 08:00] VITALS: BP 111/72
[2018-06-15 09:00] VITALS: BP 111/72
[2018-06-15] MEDS: Pro-Stat SF 30ml Vanilla PO SCH ×2 (09:47→17:38)
[2018-06-15] MEDS: FERROUS SULFATE 325 MG TAB PO SCH ×2 (09:47→17:37)
[2018-06-15] MEDS: Ensure Enlive Chocolate 8oz Bottle PO SCH ×2 (09:48→17:38)
[2018-06-15 12:26] VITALS: BP 114/70
[2018-06-15 13:00] VITALS: BP 114/68
[2018-06-15 16:30] VITALS: BP 112/71
[2018-06-15 22:00] VITALS: BP 116/69
[2018-06-16] MEDS: CEPHALEXIN 250 MG CAP PO SCH ×4 (00:26→17:20)
[2018-06-16] MEDS: HYDROmorphone HCL 2 MG/ML VL IV PRN ×5 (00:29→20:54)
[2018-06-16 05:00] VITALS: BP 115/72
[2018-06-16] MEDS: HEPARIN SODIUM (PORCINE) 5000 UNITS/ML 1ML VIAL SC SCH ×3 (06:00→22:12)
[2018-06-16 06:52] LABS: Basophils # (auto) 0 uL; Basophils % (auto) 0.7 % (0.0-2.0); Eosinophils # (auto) 0.1 uL; Eosinophils % (auto) 1.2 % (0.0-7.0); Hematocrit 34.5 % (41.0-53.0); Hemoglobin 11.6 g/dL (13.5-17.5); Lymphocytes % (auto) 13.3 % (10.0-50.0); Mean Corpuscular Hemoglobin 29.2 pg (28.0-32.0); Mean Corpuscular Hgb Conc. 33.6 g/dL (32.0-36.0); Mean Corpuscular Volume 86.9 fL (80.0-100.0); Monocytes % (auto) 14.1 % (0.0-12.0); Neutrophils # (auto) 5.1 uL; Neutrophils % (auto) 70.7 % (37.0-80.0); Nucleated Red Blood Cells % 0.1 %; Platelet Count (auto) 287 10^3/uL (140-450); Red Blood Cells 3.98 10^6/uL (4.5-5.90); Red Cell Distribution Width 15.3 % (11.8-14.3); White Blood Cell 7.2 10^3/uL (4.4-10.8)
[2018-06-16 07:13] LABS: Albumin 2.8 g/dL (3.4-5.0); BUN/Creatinine Ratio 26.2; Calcium 8.6 mg/dL (8.5-10.1); Potassium 3.8 mmol/L (3.5-5.1)
[2018-06-16 07:15] LABS: Bilirubin, Total 0.4 mg/dL (0.2-1.0); Total Protein 6.8 g/dL (6.4-8.2)
[2018-06-16 08:00] VITALS: BP 116/67
[2018-06-16] MEDS: D5W/SOD CHL 0.45%/KCL 20MEQ 1,000 ML IV SCH ×3 (08:50→22:11)
[2018-06-16] MEDS: FERROUS SULFATE 325 MG TAB PO SCH ×2 (08:51→17:20)
[2018-06-16 09:00] VITALS: BP 116/67
[2018-06-16 13:00] VITALS: BP 108/61
[2018-06-16 17:00] VITALS: BP 114/68
[2018-06-16 21:30] VITALS: BP 119/71
[2018-06-17] MEDS: HYDROmorphone HCL 2 MG/ML VL IV PRN ×6 (00:46→22:17)
[2018-06-17] MEDS: CEPHALEXIN 250 MG CAP PO SCH ×4 (00:46→17:16)
[2018-06-17 05:00] VITALS: BP 110/66
[2018-06-17] MEDS: HEPARIN SODIUM (PORCINE) 5000 UNITS/ML 1ML VIAL SC SCH ×3 (05:15→22:15)
[2018-06-17 05:20] LABS: Basophils # (auto) 0 uL; Basophils % (auto) 0.6 % (0.0-2.0); Eosinophils # (auto) 0.1 uL; Eosinophils % (auto) 1.1 % (0.0-7.0); Hemoglobin 11.5 g/dL (13.5-17.5); Lymphocytes # (auto) 1.1 uL; Lymphocytes % (auto) 15.4 % (10.0-50.0); Mean Corpuscular Hemoglobin 28.6 pg (28.0-32.0); Mean Corpuscular Hgb Conc. 32.9 g/dL (32.0-36.0); Monocytes % (auto) 14.3 % (0.0-12.0); Neutrophils % (auto) 68.6 % (37.0-80.0); Platelet Count (auto) 294 10^3/uL (140-450); Red Blood Cells 4.03 10^6/uL (4.5-5.90); Red Cell Distribution Width 15.2 % (11.8-14.3); White Blood Cell 7.2 10^3/uL (4.4-10.8)
[2018-06-17 05:52] LABS: BUN/Creatinine Ratio 26.1; Calcium 8.3 mg/dL (8.5-10.1); Potassium 3.8 mmol/L (3.5-5.1)
[2018-06-17 08:00] VITALS: BP 116/67
[2018-06-17 08:44] VITALS: BP 105/64
[2018-06-17] MEDS: FERROUS SULFATE 325 MG TAB PO SCH ×2 (09:22→17:16)
[2018-06-17 12:50] VITALS: BP 108/65
[2018-06-17] MEDS: D5W/SOD CHL 0.45%/KCL 20MEQ 1,000 ML IV SCH ×2 (14:22→22:16)
[2018-06-17 15:46] VITALS: BP 144/71
[2018-06-17 21:32] VITALS: BP 111/65
[2018-06-18] VITALS (7 sets, daily range): BP systolic 106–118; BP diastolic 60–71
[2018-06-18] MEDS: CEPHALEXIN 250 MG CAP PO SCH ×5 (00:31→23:54)
[2018-06-18] MEDS: HYDROmorphone HCL 2 MG/ML VL IV PRN ×5 (03:44→22:18)
[2018-06-18 06:12] LABS: Basophils # (auto) 0 uL; Basophils % (auto) 0.6 % (0.0-2.0); Eosinophils # (auto) 0.1 uL; Eosinophils % (auto) 1.5 % (0.0-7.0); Hematocrit 34.2 % (41.0-53.0); Hemoglobin 11.6 g/dL (13.5-17.5); Lymphocytes # (auto) 0.9 uL; Mean Corpuscular Hemoglobin 29.4 pg (28.0-32.0); Mean Corpuscular Volume 86.6 fL (80.0-100.0); Monocytes % (auto) 13.1 % (0.0-12.0); Neutrophils # (auto) 5.3 uL; Neutrophils % (auto) 72.8 % (37.0-80.0); Platelet Count (auto) 280 10^3/uL (140-450); Red Blood Cells 3.95 10^6/uL (4.5-5.90); Red Cell Distribution Width 14.9 % (11.8-14.3); White Blood Cell 7.3 10^3/uL (4.4-10.8)
[2018-06-18 06:30] LABS: BUN/Creatinine Ratio 26.7; Calcium 8.8 mg/dL (8.5-10.1)
[2018-06-18] MEDS: HEPARIN SODIUM (PORCINE) 5000 UNITS/ML 1ML VIAL SC SCH ×3 (06:34→22:19)
[2018-06-18] MEDS: D5W/SOD CHL 0.45%/KCL 20MEQ 1,000 ML IV SCH ×2 (11:51→22:16)
[2018-06-19] MEDS: HYDROmorphone HCL 2 MG/ML VL IV PRN ×3 (02:54→11:46)
[2018-06-19 06:01] LABS: Basophils # (auto) 0 uL; Basophils % (auto) 0.5 % (0.0-2.0); Eosinophils # (auto) 0.1 uL; Eosinophils % (auto) 1.2 % (0.0-7.0); Hematocrit 35.3 % (41.0-53.0); Hemoglobin 11.9 g/dL (13.5-17.5); Lymphocytes # (auto) 0.8 uL; Lymphocytes % (auto) 10.5 % (10.0-50.0); Mean Corpuscular Hemoglobin 29.3 pg (28.0-32.0); Mean Corpuscular Hgb Conc. 33.7 g/dL (32.0-36.0); Monocytes % (auto) 13.4 % (0.0-12.0); Neutrophils # (auto) 5.5 uL; Neutrophils % (auto) 74.4 % (37.0-80.0); Platelet Count (auto) 282 10^3/uL (140-450); Red Blood Cells 4.06 10^6/uL (4.5-5.90); Red Cell Distribution Width 14.7 % (11.8-14.3); White Blood Cell 7.4 10^3/uL (4.4-10.8)
[2018-06-19 06:21] LABS: Potassium 3.9 mmol/L (3.5-5.1)
[2018-06-19] MEDS: CEPHALEXIN 250 MG CAP PO SCH ×3 (06:24→18:00)
[2018-06-19] MEDS: HEPARIN SODIUM (PORCINE) 5000 UNITS/ML 1ML VIAL SC SCH ×2 (06:26→16:29)
[2018-06-19 06:30] LABS: Albumin 2.8 g/dL (3.4-5.0); BUN/Creatinine Ratio 24.3; Bilirubin, Total 0.4 mg/dL (0.2-1.0); Calcium 8.7 mg/dL (8.5-10.1); Total Protein 6.8 g/dL (6.4-8.2)
[2018-06-19 08:38] VITALS: BP 106/57
[2018-06-19 13:01] VITALS: BP 107/74
[2018-06-19 15:02] VITALS: BP 107/74
[2018-06-19] MEDS: D5W/SOD CHL 0.45%/KCL 20MEQ 1,000 ML IV SCH (16:29)
== END 2018-06-19 18:20 | disposition home or self-care (01) | DRG 720 ==
LOC: ER 23:43 → TELE 05-11 06:23 → TELE-CENTR 05-11 07:52 → DOU IN ICU 05-11 13:03 → TELE-EAST 05-16 17:53 → EAST 05-18 17:49 → ICU WEST 05-21 17:14 → TELE-WESTW 05-22 21:25 → WEST WING 05-23 06:16
PROVIDERS: ADMIT Nurse Practitioner; ATTEND Internal Medicine
PROC: 0W9B30Z Drainage of Left Pleural Cavity with Drainage Device, Percutaneous Approach (ICD-10-PCS; 2018-05-11)
PROC: 0BNL0ZZ Release Left Lung, Open Approach (ICD-10-PCS; principal; 2018-05-22)
PROC: 0W9B00Z Drainage of Left Pleural Cavity with Drainage Device, Open Approach (ICD-10-PCS; 2018-05-22)
PROC: 0B9P00Z Drainage of Left Pleura with Drainage Device, Open Approach (ICD-10-PCS; 2018-05-22)
PROC: 0BJ08ZZ Inspection of Tracheobronchial Tree, Via Natural or Artificial Opening Endoscopic (ICD-10-PCS; 2018-06-04)
PROC: 0B9F8ZX Drainage of Right Lower Lung Lobe, Via Natural or Artificial Opening Endoscopic, Diagnostic (ICD-10-PCS; 2018-06-05)
PROC: 0W9B30Z Drainage of Left Pleural Cavity with Drainage Device, Percutaneous Approach (ICD-10-PCS; 2018-06-11)
DX: A41.9 Sepsis, unspecified organism (principal); J96.00 Acute respiratory failure, unspecified whether with hypoxia or hypercapnia; J86.9 Pyothorax without fistula; E43 Unspecified severe protein-calorie malnutrition; J94.2 Hemothorax; J15.4 Pneumonia due to other streptococci; I31.3 Pericardial effusion (noninflammatory); E83.51 Hypocalcemia; J94.8 Other specified pleural conditions; I50.42 Chronic combined systolic (congestive) and diastolic (congestive) heart failure; E11.9 Type 2 diabetes mellitus without complications; E88.09 Other disorders of plasma-protein metabolism, not elsewhere classified; E87.1 Hypo-osmolality and hyponatremia; I25.10 Atherosclerotic heart disease of native coronary artery without angina pectoris; J98.11 Atelectasis; M48.00 Spinal stenosis, site unspecified; D64.9 Anemia, unspecified; J45.909 Unspecified asthma, uncomplicated; Z87.440 Personal history of urinary (tract) infections; Z98.52 Vasectomy status; Z90.49 Acquired absence of other specified parts of digestive tract; Z68.1 Body mass index [BMI] 19.9 or less, adult
CPT/HCPCS: 10022; 36415; 36600; 71045; 71046; 71250; 71260; 74177; 76604; 76705; 77012; 78306; 80048; 80053; 80202; 80307; 81001; 82150; 82728; 82805; 83010; 83540; 83550; 83605; 83615; 83735; 83880; 83986; 84484; 85007; 85014; 85018; 85025; 85027; 85045; 85610; 85652; 85730; 86703; 86704; 86706; 86708; 86803; 86850; 86900; 86901; 87040; 87070; 87075; 87077; 87081; 87186; 87205; 87340; 89051; 93005; 93306; 94640; 94761; 96365; 96366; 96375; 97110; 97116; 97163; 97530; A4223; A6257; C1729; C2625; G0378; J0171; J0330; J0610; J1100; J1885; J1956; J2001; J2185; J2250; J2405; J2543; J2704; J3490; J7060

== ENCOUNTER 2018-06-27 17:09 | Emergency (ER) | payer MEDICAID ==
[~2018-06-27] VITALS: Ht 193 cm; Wt 70.3 kg
[~2018-06-27 17:09] MED LIST: GABA300C10 PO; IBUP600T27 PO; LACT10SO3 PO
[2018-06-27 18:31] LABS: Basophils # (auto) 0 uL; Basophils % (auto) 0.2 % (0.0-2.0); Eosinophils # (auto) 0 uL; Hematocrit 37.2 % (41.0-53.0); Hemoglobin 12.3 g/dL (13.5-17.5); Lymphocytes # (auto) 0.8 uL; Mean Corpuscular Hemoglobin 28.7 pg (28.0-32.0); Mean Corpuscular Volume 87.1 fL (80.0-100.0); Monocytes # (auto) 2.2 uL; Monocytes % (auto) 12.8 % (0.0-12.0); Platelet Count (auto) 315 10^3/uL (140-450); Red Blood Cells 4.27 10^6/uL (4.5-5.90); Red Cell Distribution Width 14.8 % (11.8-14.3)
[2018-06-27 18:37] LABS: Alanine Aminotransferase 34 U/L (16-61); Anion Gap 10 (5-15); Aspartate Aminotransferase 18 U/L (15-37); BUN/Creatinine Ratio 17.5; Blood Urea Nitrogen 14 mg/dL (7-18); Calcium 8.2 mg/dL (8.5-10.1); Carbon Dioxide 25 mmol/L (21-32); Chloride 101 mmol/L (98-107); GFR African American 130 mL/min; GFR Non-African American 107 mL/min; Glucose 105 mg/dL (74-106); Potassium 3.9 mmol/L (3.5-5.1); Sodium 136 mmol/L (136-145)
[2018-06-27 18:43] LABS: Alkaline Phosphatase 119 U/L (45-117); Bilirubin, Total 0.6 mg/dL (0.2-1.0); Total Protein 7.4 g/dL (6.4-8.2)
[2018-06-28] MEDS ORDERED: PIPERACILLIN-TAZOB 3.375GM 100 ML IV ONE (08:00)
[2018-06-28] MEDS ORDERED: MORPHINE SULFATE 10 MG/ML INJ 1ML SDV IV ONE (10:30)
[2018-06-28] MEDS ORDERED: ONDANSETRON HCL 4 MG/2 ML VIAL IV ONE (10:30)
[2018-06-28] MEDS ORDERED: VANCOMYCIN 1GM/250ML 250 ML IV ONE (13:15)
[2018-06-28 15:29] VITALS: BP 104/60
== END 2018-06-28 15:30 | disposition home or self-care (01) ==
LOC: ER 17:12
DX: A41.9 Sepsis, unspecified organism (principal); J86.9 Pyothorax without fistula; J45.909 Unspecified asthma, uncomplicated; Z87.440 Personal history of urinary (tract) infections; Z98.890 Other specified postprocedural states
CPT/HCPCS: 36415; 71046; 71250; 80053; 83605; 84484; 85025; 87040; 93005; 94761; 96365; 96366; 96367; 96375; 99284; J2270; J2405; J2543; J3370

== ENCOUNTER 2018-07-04 05:03 | Emergency (ER) | payer MEDICAID ==
[~2018-07-04] VITALS: Ht 182.9 cm; Wt 72.6 kg
[2018-07-04 06:35] LABS: Basophils # (auto) 0 uL; Basophils % (auto) 0.2 % (0.0-2.0); Eosinophils # (auto) 0 uL; Eosinophils % (auto) 0.2 % (0.0-7.0); Hematocrit 37.4 % (41.0-53.0); Hemoglobin 12.5 g/dL (13.5-17.5); Lymphocytes # (auto) 1.3 uL; Lymphocytes % (auto) 5.6 % (10.0-50.0); Mean Corpuscular Hemoglobin 28.9 pg (28.0-32.0); Mean Corpuscular Hgb Conc. 33.3 g/dL (32.0-36.0); Mean Corpuscular Volume 86.7 fL (80.0-100.0); Monocytes # (auto) 2.4 uL; Monocytes % (auto) 10.2 % (0.0-12.0); Neutrophils # (auto) 19.9 uL; Neutrophils % (auto) 83.8 % (37.0-80.0); Platelet Count (auto) 419 10^3/uL (140-450); Red Blood Cells 4.32 10^6/uL (4.5-5.90); Red Cell Distribution Width 15.2 % (11.8-14.3); White Blood Cell 23.8 10^3/uL (4.4-10.8)
[2018-07-04 06:58] LABS: Albumin 2.6 g/dL (3.4-5.0); BUN/Creatinine Ratio 14.9; Calcium 8.3 mg/dL (8.5-10.1); Potassium 4.1 mmol/L (3.5-5.1)
[2018-07-04 07:00] LABS: Bilirubin, Total 0.3 mg/dL (0.2-1.0); Total Protein 6.7 g/dL (6.4-8.2)
[2018-07-04] MEDS ORDERED: SODIUM CHLORIDE 0.9% 1,000 ML IV ONE (07:36)
[2018-07-04] MEDS ORDERED: PIPERACILLIN-TAZOB 3.375GM 100 ML IV ONE (07:45)
[2018-07-04] MEDS ORDERED: VANCOMYCIN 1GM/250ML 250 ML IV ONE (07:45)
[2018-07-04] MEDS ORDERED: HYDROcodone-ACET 10/325MG TAB PO ONE (08:30)
[2018-07-04 10:15] VITALS: BP 108/66
== END 2018-07-04 10:15 | disposition home or self-care (01) ==
LOC: EDBD 05:03 → ER 05:11
DX: J43.9 Emphysema, unspecified (principal)
CPT/HCPCS: 36415; 71045; 71250; 80053; 83605; 85025; 87040; 87205; 94761; 96365; 96368; 99284; A6257; J2543; J3370; J7030

== ENCOUNTER 2019-11-06 18:45 | Emergency (ER) | payer MEDICAID ==
[~2019-11-06] VITALS: Ht 193 cm; Wt 88.5 kg
[2019-11-06] MEDS ORDERED: BACITRACIN TOP OINT 1 UD PKG TOP ONE (20:30)
[2019-11-06 21:29] LABS: Basophils # (auto) 0 10 ^3/uL (0-0.2); Basophils % (auto) 0.6 % (0.0-2.0); Eosinophils # (auto) 0.1 10 ^3/uL (0-0.8); Eosinophils % (auto) 1.1 % (0.0-7.0); Hemoglobin 15.6 g/dL (13.5-17.5); Lymphocytes # (auto) 1.5 10 ^3/uL (0.4-5.4); Lymphocytes % (auto) 24.3 % (10.0-50.0); Mean Corpuscular Hemoglobin 30.7 pg (28.0-32.0); Mean Corpuscular Hgb Conc. 34.8 g/dL (32.0-36.0); Mean Corpuscular Volume 88.2 fL (80.0-100.0); Monocytes # (auto) 0.6 10 ^3/uL (0-1.3); Monocytes % (auto) 10.7 % (0.0-12.0); Neutrophils # (auto) 3.9 10 ^3/uL (1.6-8.6); Neutrophils % (auto) 63.3 % (37.0-80.0); Nucleated Red Blood Cells % 0.1 %; Platelet Count (auto) 172 10^3/uL (140-450); Red Cell Distribution Width 13.5 % (11.8-14.3); White Blood Cell 6.1 10^3/uL (4.4-10.8)
[2019-11-06 21:43] LABS: INR 1.07 (0.9-1.15)
[2019-11-06 21:45] LABS: Albumin 4.3 g/dL (3.4-5.0); Calcium 8.5 mg/dL (8.5-10.1); Potassium 3.9 mmol/L (3.5-5.1)
[2019-11-06 21:49] LABS: BUN/Creatinine Ratio 22.1; Bilirubin, Total 0.5 mg/dL (0.2-1.0); Total Protein 7.5 g/dL (6.4-8.2)
[2019-11-06 22:42] VITALS: BP 116/73
== END 2019-11-06 22:42 | disposition home or self-care (01) ==
LOC: ER 18:46
DX: T63.001A Toxic effect of unspecified snake venom, accidental (unintentional), initial encounter (principal); Y92.89 Other specified places as the place of occurrence of the external cause
CPT/HCPCS: 36415; 80053; 85025; 85610

== ENCOUNTER 2022-07-16 13:25 | Emergency (ER) | payer MEDICAID ==
[~2022-07-16] VITALS: Ht 182.9 cm; Wt 86.0 kg
[2022-07-16] MEDS ORDERED: ASPirin 81 mg TAB PO ONE (13:45)
[2022-07-16 14:21] LABS: Basophils # (auto) 0 10 ^3/uL (0-0.2); Basophils % (auto) 0.5 % (0.0-2.0); Calcium 9.1 mg/dL (8.5-10.1); Eosinophils # (auto) 0 10 ^3/uL (0-0.8); Eosinophils % (auto) 0.6 % (0.0-7.0); Hematocrit 49.9 % (41.0-53.0); Hemoglobin 17.2 g/dL (13.5-17.5); Lymphocytes # (auto) 1.6 10 ^3/uL (0.4-5.4); Lymphocytes % (auto) 21.5 % (10.0-50.0); Mean Corpuscular Hemoglobin 30.6 pg (28.0-32.0); Mean Corpuscular Hgb Conc. 34.5 g/dL (32.0-36.0); Mean Corpuscular Volume 88.7 fL (80.0-100.0); Monocytes # (auto) 0.9 10 ^3/uL (0-1.3); Monocytes % (auto) 11.2 % (0.0-12.0); Neutrophils % (auto) 66.2 % (37.0-80.0); Nucleated Red Blood Cells % 0.2 %; Potassium 4.3 mmol/L (3.5-5.1); Red Blood Cells 5.63 10^6/uL (4.5-5.90); White Blood Cell 7.6 10^3/uL (4.4-10.8)
[2022-07-16 14:27] LABS: Bilirubin, Total 0.7 mg/dL (0.2-1.0); Total Protein 7.1 g/dL (6.4-8.2)
[2022-07-16 14:36] LABS: INR 1.01 (0.9-1.15)
[2022-07-16 15:41] VITALS: BP 132/71
== END 2022-07-16 15:45 | disposition home or self-care (01) ==
LOC: ER 13:25
DX: R07.89 Other chest pain (principal); J45.909 Unspecified asthma, uncomplicated; Z90.49 Acquired absence of other specified parts of digestive tract; Z79.1 Long term (current) use of non-steroidal anti-inflammatories (NSAID); Z79.899 Other long term (current) drug therapy
CPT/HCPCS: 36415; 71045; 80053; 84484; 85025; 85379; 85610; 85730; 93005